=== PATIENT | male | born 1975 | race Caucasian/White ===

== ENCOUNTER → 2017-08-19 15:16 | Outpatient (CLI) | payer OTHER, SELFPAY ==
[2017-08-19 18:35] LABS: Vitamin D,25 Hydroxy 56.7 ng/mL (29.95-100.01)
[2017-08-19 18:39] LABS: ALB/GLOB Ratio 1.2 RATIO (0.9-2.4); AST(SGOT) 24 U/L (15-37); Alanine Aminotransfer ALT/SGPT 32 U/L (16-61); Albumin, Serum 4.2 g/dL (3.2-5.0); Alkaline Phosphatase 59 U/L (45-117); Anion Gap 9 (5-15); BUN 16 mg/dL (7-18); BUN/Creat Ratio 14.7 RATIO (10-20); Calcium,Total 6.9 mg/dL (8.5-10.1); Chloride 100 mmol/L (98-107); Creatinine, Serum 1.09 mg/dL (0.70-1.30); EST Glomerular Filtration Rate 78 mL/min (>60); Est Glom Filt Rate - Afr Amer 95 mL/min (>60); Globulin 3.4 g/dL (2.2-4.2); Glucose 78 mg/dL (74-106); Magnesium 2.3 mg/dL (1.6-2.6); PSA,Total - Annual Screen 1.19 ng/mL (0.00-4.00); Potassium 3.6 mmol/L (3.5-5.1); Protein, Total 7.6 g/dL (6.4-8.2); Sodium Level 138 mmol/L (136-145)
[2017-08-19 19:16] LABS: PTHIN 10.5 pg/mL (18.4-80.1)
== END ==
PROVIDERS: Family Provider Internal Medicine; PCP Internal Medicine; Visit Provider Internal Medicine
DX: Z86.39 Personal history of other endocrine, nutritional and metabolic disease (principal); Z80.42 Family history of malignant neoplasm of prostate
CPT/HCPCS: 36415; 80053; 82306; 83735; 83970; 84153; G0103

== ENCOUNTER → 2017-09-01 08:33 | Outpatient (CLI) | payer OTHER, SELFPAY ==
--- NOTE | 2017-09-01 09:19 | BD_ITS ---
STUDY: DUAL ENERGY X-RAY ABSORPTIOMETRY / DXA REASON FOR EXAM: Male, 41 years old. History of osteopenia. TECHNIQUE: Bone Mineral Density (BMD) measurements of lumbar spine and bilateral hips were obtained. COMPARISON: Comparison is made with prior study of August 08, 2014. FINDINGS: Lumbar Spine (L1-L4): g/cm2 (1.281) / T-score (0.5) / Z-score (0.6) Findings are suggestive of normal bone density with a low fracture risk. Left Femur Total: g/cm2 (1.011) / T-score (-0.6) / Z-score (-0.4) Left Femoral Neck: g/cm2 (0.887) / T-score (-1.4) / Z-score (-1.0) Right Femur Total: g/cm2 (0.998) / T-score (-0.7) / Z-score (-0.5) Right Femoral Neck: g/cm2 (1.000) / T-score (-0.5) / Z-score (0.1) The T-Scores on the most recent prior examination were: Lumbar Spine (L1-L4): There has been improvement of bone density since the previous examination. Left Femur Total: which represents no significant change. . Right Femur Total: which represents an improvement of 1.0%. BD/Dexa Bone Density Study IMPRESSION: The patient is considered osteopenic as outlined below according to World [employer] Organization (WHO) criteria with a moderate fracture risk. There has been improvement of bone density since the previous examination. Reference Information: The T-score is the number of standard deviations above or below the standard which is normal for young adults at their peak bone mineral density. The World Health Organization (WHO) interprets the T-scores as follows: Above -1 Normal bone density Between -1 and -2.5 Osteopenia Equal to / or below -2.5 Osteoporosis As a practical clinical guideline, osteopenia may be graded as follows: Mild -1 through -1.5 Moderate -1.6 through -2.0 Severe -2.1 through -2.4 The Z-score is the number of standard deviations above or below age-matched controls. A Z-score of less than -1.5 would be considered abnormal. References: 1. NIH Osteoporosis and Related Bone Diseases http://www.osteo.org 2. International Society for Clinical Densitometry http://www.iscd.org 3. National Osteoporosis Foundation http://www.nof.org Electronically Signed: Rasheed Washburn MD at 13:20 EDT Tel [phone], Service support ,
== END ==
PROVIDERS: Family Provider Internal Medicine; PCP Internal Medicine; Visit Provider Internal Medicine
DX: M85.80 Other specified disorders of bone density and structure, unspecified site (principal)
CPT/HCPCS: 77080

== ENCOUNTER → 2018-08-13 08:28 | Outpatient (CLI) | payer OTHER, SELFPAY ==
[2018-08-13 08:05] VITALS: BMI 25.0
[2018-08-13 12:50] LABS: Absolute Lymphocyte Count 1.58 X10^3/ul (0.83-4.51); Absolute Neutrophil Count 8.5 X10^3/uL (2.0-7.7); Basophil# 0.03 X10^3/uL; Basophil% 0.3 % (0-1); Eosinophil# 0.12 X10^3/uL; Eosinophils% 1.1 % (0-5); Hematocrit 44.7 % (40-54); Hemoglobin 14.9 g/dl (13.0-16.5); Lymphocyte # 1.58 X10^3/ul (4.0); Lymphocyte % 14.5 % (19-41); Mean Corp Hgb Conc 33.3 g/gl (32-36); Mean Corpuscular Hgb 30.4 pg (27.0-32.0); Mean Corpuscular Volume 91.2 fL (80-94); Mean Platelet Vol. 9.8 fl (6.2-12.0); Monocyte# 0.64 X10^3/uL; Monocyte% 5.9 % (0-10); Neutrophil # 8.52 X10^3/uL (2.7-7.7); Platelet Count 322 K/mm3 (150-450); RBC Distribution Width CV 13.3 % (11.6-14.6); White Blood Count 10.9 K/mm3 (4.4-11.0)
[2018-08-13 12:56] LABS: POSITIVE COUNT NO; POSITIVE DIFFERENTIAL NO; POSITIVE MORPHOLOGY NO
[2018-08-13 13:04] LABS: PTHIN 9.2 pg/mL (18.4-80.1)
[2018-08-13 13:05] LABS: ALB/GLOB Ratio 1.3 RATIO (0.9-2.4); AST(SGOT) 25 U/L (15-37); Alanine Aminotransfer ALT/SGPT 33 U/L (16-61); Albumin, Serum 4.4 g/dL (3.2-5.0); Alkaline Phosphatase 60 U/L (45-117); Anion Gap 7 (5-15); BUN 18 mg/dL (7-18); BUN/Creat Ratio 14.1 RATIO (10-20); Calcium,Total 7.8 mg/dL (8.5-10.1); Chloride 105 mmol/L (98-107); Cholesterol 214 mg/dL (200); Creatinine, Serum 1.28 mg/dL (0.70-1.30); EST Glomerular Filtration Rate 65 mL/min (>60); Est Glom Filt Rate - Afr Amer 78 mL/min (>60); Globulin 3.4 g/dL (2.2-4.2); Glucose 94 mg/dL (74-106); High Density Lipoprotein 46 mg/dL; Magnesium 2.3 mg/dL (1.6-2.6); Protein, Total 7.8 g/dL (6.4-8.2); Sodium Level 139 mmol/L (136-145); Triglycerides 116 mg/dL; Very Low Density Lipoprotein 23 mg/dL (5-40)
== END ==
PROVIDERS: Family Provider Internal Medicine; PCP Internal Medicine; Visit Provider Internal Medicine
DX: R03.0 Elevated blood-pressure reading, without diagnosis of hypertension (principal); E20.9 Hypoparathyroidism, unspecified; Z86.39 Personal history of other endocrine, nutritional and metabolic disease
CPT/HCPCS: 36415; 80053; 80061; 83735; 83970; 85025

== ENCOUNTER → 2019-02-17 11:03 | Outpatient (CLI) | payer OTHER, SELFPAY ==
[2019-02-09 16:55] VITALS: BMI 25.0
[2019-02-17 12:49] LABS: Anion Gap 5 (5-15); BUN 16 mg/dL (7-18); BUN/Creat Ratio 13.1 RATIO (10-20); Calcium,Total 7.5 mg/dL (8.5-10.1); Chloride 103 mmol/L (98-107); Creatinine, Serum 1.22 mg/dL (0.70-1.30); EST Glomerular Filtration Rate 68 mL/min (>60); Est Glom Filt Rate - Afr Amer 83 mL/min (>60); Glucose 78 mg/dL (74-106); PSA,Total - Annual Screen 1.03 ng/mL (0.00-4.00); Potassium 4.1 mmol/L (3.5-5.1); Sodium Level 137 mmol/L (136-145)
[2019-02-17 12:58] LABS: PTHIN 11.2 pg/mL (18.4-80.1)
[2019-02-17 13:00] LABS: Vitamin D,25 Hydroxy 72.4 ng/mL (29.95-100.01)
== END ==
PROVIDERS: Family Provider Internal Medicine; PCP Internal Medicine; Visit Provider Internal Medicine
DX: Z00.00 Encounter for general adult medical examination without abnormal findings (principal); E20.9 Hypoparathyroidism, unspecified; E83.51 Hypocalcemia
CPT/HCPCS: 36415; 80048; 82306; 83970; 84153; G0103

== ENCOUNTER 2019-05-10 05:52 | Day surgery (SDC) | payer OTHER, SELFPAY ==
[2019-02-09 16:55] VITALS: BMI 25.0
--- NOTE | 2019-05-09 20:42 | PCM.HP.BLA ---
History and Physical Date of Admission: 05/10/19 HISTORY OF PRESENT ILLNESS 43 year old man presents with Dupuytren's contracture right hand that has worsened over the last several months. He has palmar nodules at the distal palmar crease by the small finger and ring finger. He has noticed increasing flexion of his right small finger. He is right hand dominant. It is starting to affect his activities of daily living. He is able to straighten out his ring finger, long finger, and index finger. He denies any trauma. He denies any fever. He denies any drainage. He denies any numbness. He has also noticed the beginning of some early flexion of his left small finger. He has also noted a palmar nodule at the distal palmar crease by the ring finger. He presents at this time for further evaluation and treatment. PAST MEDICAL HISTORY Dupuytren's contracture Raynaud's disease hyperparathyroidism Kidney stone Low Calcium levels PAST SURGICAL HISTORY knee surgery removal of part of parathyroid ALLERGIES No Known Allergies MEDICATIONS calcium carbonate multivitamin cholecalciferol (vitamin D3) FAMILY HISTORY Mother - Raynaud disease, Breast cancer Grandmother - Raynaud disease Brother - Raynaud disease Father - Hypertension, prostate cancer SOCIAL HISTORY Smoking Status: Never smoker alcohol intake: current alcohol intake frequency: a few times a month Alcohol type: beer, wine substance use type: does not use REVIEW OF SYSTEMS General - Denies fever, fatigue, and weight loss. Eyes - Denies cataracts and glaucoma. ENT - Denies nasal congestion and sore throat. Endocrine - Denies excessive thirst and urination. Skin - Denies suspicious lesions and skin cancer. Musculoskeletal - Has joint pain, joint stiffness. Denies weakness of muscles and joints, back pain, and arthritis. Neuro - Denies headaches. Cardiovascular - Denies chest pain, fatigue, and shortness of breath with exertion. Psych - Denies anxiety and depression. Respiratory - Denies chronic cough and shortness of breath. Gastrointestinal - Denies nausea, vomiting, diarrhea, and constipation. Hematologic - Denies abnormal bruising and bleeding. Genitourinary - Denies hematuria and urinary frequency. PHYSICAL EXAMINATION General - Alert and Oriented. HEENT - PERRL. EOMI. Throat is clear. Neck - Supple and nontender. No cervical adenopathy. Lungs - Clear to auscultation. Heart - Regular rate and rhythm. Abdomen - Soft and nondistended. Extremities - FROM except for right small finger which cannot fully extend. No axillary adenopathy. Radial pulses are palpable. Fingers are warm with good capillary refill. No sensory deficits noted in both hands. Patient is right hand dominant. Palmar nodules are seen at the distal palmar crease right hand by the small finger and ring finger. There is skin adherence in this area. The PIP joint is flexed at 45 degrees. Some contracture is noted as it is difficult to straighten out the right small finger. The ring finger, long finger, and index fingers are straight. On the left hand is the early onset of some flexing of the small finger at the PIP joint of < 5 degrees. Passively can straighten out the left small finger. There is a palmar nodule at the distal palmar crease left hand by the ring finger. There is some early skin adherence present. No evidence of Garrod's nodules on the PIP joints. Neuro - CN II-XII grossly intact. Psych - Normal mood and affect. ASSESSMENT 1. Dupuytren's contracture right palm with nodules by the small finger and ring fingers with extension onto the small finger. 2. 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 3. Early Dupuytren's contracture left palm with a nodule by the ring finger with early onset onto the small finger and flexion at PIP joint (< 5 degrees). PLAN Patient has early onset Dupuytren's contracture left hand that can be observed at this time. He has Dupuytren's contracture right palm with nodules by the small finger and ring fingers with extension onto the small finger. 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 Recommend partial palmar dermal fasciectomy right hand at the small finger and the ring finger with extension to the small finger. Reconstruction will be with multiple Z-plasties, possible skin grafting. Depending on the fibrous contracture involving the digital nerves and or common digital nerves in the palm, neuroplasties may be necessary. With the degree of flexion contracture of the PIP joint right small finger (45 degrees), a capsulectomy may be necessary to allow some straightening of the finger. Surgery will be done under general anesthesia and tourniquet control. Depending on the complexity of the surgery, sometimes a surgical observation overnight stay in the hospital may be necessary. An extension splint will be applied at the end of the surgery. Tissue that is removed will be sent to Pathology for analysis to rule out carcinoma. Postoperatively, will set him up with OT for placement of a silastic splint and for range of motion exercises, strengthening, and edema management. Because of the closeness of the fibrotic process to the skin, it is important to be aggressive to remove the fibrotic tissue to minimize recurrence. Recurrent surgery is more risky for nerve injury that would necessitate repair and or nerve grafting. So there is some risk of skin loss and wound healing problems after surgery. Localized debridement in the office can be done with local wound care with daily Silver dressing changes. It is unusual to have to return to surgery for operative debridement and skin grafting unless an infection is present that needs operative intervention. Patient was informed of the risks and complications of the procedure including alternatives to surgery. These were discussed with the patient personally. Patient voices understanding and wishes to proceed. Some of the risks and complications were included in a form from the [employer].
--- NOTE | 2019-05-10 | DUP_PTH ---
PATIENT: HA HUERTAS [place] [facility] [place][id number] AGE/SX: 43/M ROOM: RE05/10/[address]: Dr. Chris Infante MD : 1975 BED: DIS: 05/10/2019 SPEC #: [id number] RECD: 05/10/19 13:17 STATUS: ALEC REGerda #: [id number] RIZWAN: 05/10/19 00:[address]: Chris Infante DEPT: SURGICAL PATHOLOGY RECD BY: Kale Adames ENTERED: 05/10/19 13:17 SP TYPE: [facility] DR: Dr. 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 AM:keli 05/11/19 MICROSCOPIC DESCRIPTION Slides are reviewed. GROSS DESCRIPTION Received is one container labeled with the patient name and designated Dupuytren's right hand. The specimen consists of multiple irregular fragments of indurated pink-viramontes soft tissue that in aggregate measure 5 x 5 x 2 cm. Yarn Worker portions are submitted in one cassette. /AM:keli 05/10/19 TC: 5 CPT:80739
[2019-05-10 06:36] VITALS: BP 134/90; PULSE 73; RESP 16; TEMP 36.6; O2SAT 99; BMI 24.9
[2019-05-10] MEDS: Lactated Ringers 1,000 ML 100 ML IV (06:44)
[2019-05-10] MEDS: Cefazolin 2 GM in 0.9% Normal Saline 100 ML IV (07:28)
[2019-05-10] MEDS: Mupirocin Ointment 22gm Tube 1 APPLIC (10:10)
--- NOTE | 2019-05-10 10:29 | OP.PCM_ITS ---
Report of Operation Date of Procedure: 05/10/19 Pre-Operative Diagnosis: 1. Dupuytren's contracture right palm with painful nodules by the small finger, ring finger, and long fingers with extension onto the small finger. 2. 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 Post-Operative Diagnosis: 1. Dupuytren's contracture right palm with painful nodules by the small finger, ring finger, and long fingers with extension onto the small finger. 2. 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 3. Radial digital nerve compression injury right small finger. Surgery/Procedure Performed:: 1. Excision Dupuytren's contracture with fa sciectomy right palm with painful nodules by the small finger, ring finger, and long fingers with release of small finger including PIP joint contracture. 2. Neuroplasty radial digital nerve right small finger. 3. Neuroplasty common digital nerve right palm to radial aspect right small finger and ulnar aspect right ring finger. 4. Epineural repair radial digital nerve compression injury right small finger. Description of Surgical Findings:: 43 year old man presents with Dupuytren's contracture right hand that has worsened over the last several months. He has palmar nodules at the distal palmar crease by the small finger and ring finger and long finger. He has noticed increasing flexion of his right small finger. He is right hand dominant. It is starting to affect his activities of daily living. He is able to straighten out his ring finger, long finger, and index finger. He denies any trauma. He denies any fever. He denies any drainage. He denies any numbness. He has also noticed the beginning of some early flexion of his left small finger. He has also noted a palmar nodule at the distal palmar crease by the ring finger. Patient was informed of the risks and complications of the procedure including alternatives to surgery. These were discussed with the patient personally. Patient voices understanding and wishes to proceed. Some of the risks and complications were included in a form from the [employer]. Some of the risks and complications that were discussed included but were not inclusive of failure to diagnose including symptom relief, pain, infection, numbness, stiffness, loss of digit, RSD (CRPS), need for further surgery, contracture, and wound healing problems. Total tourniquet time - 113 minutes. fitter armament: None Type of Anesthesia:: General Specimen's removed: Dupuytren's fibromatosis tissue right palm and small finger to Pathology. Drains: None. Estimated Blood Loss (mL): 5 ml. Description of Procedure: Patient was taken to OR in supine position and placed under general anesthesia. His right upper extremity was prepped and draped in the usual fashion. SCDs were placed for DVT prophylaxis. Perioperative antibiotics were given intravenously. The right hand was wrapped with an Esmarch bandage and the tourniquet was elevated to 250 mmHg. Under loupe magnification I made markings in the distal palmar crease involving the right small finger and right ring finger and right long finger. Made zig zag markings through the right small finger extending past the PIP joint. These markings in the palm were infiltrated with 1% Xylocaine and epinephrine for postoperative pain relief. After waiting 5 minutes for the anesthetic to take effect, I made incisions through the skin in the distal palmar crease. This incision extended through the subcutaneous tissue. There was a lot of dense fibrous tissue involving the subcutaneous tissue and adherent to the overlying skin. The fibrotic tissue extended down to the tendon sheath. There was evidence of pretendinous cord extending distally in the small finger. There was the beginning formation of a spiral cord on the radial aspect of the small finger. This cord involves the spiral band, Darian's ligament, and the lateral digital sheet. The radial digital nerve was starting to migrate anteriorly. I then slowly and carefully dissected the fibrous tissue off the neurovascular bundle in the palm involving the common digital nerve going to the radial aspect small finger and ulnar aspect ring finger. The radial digital nerve right small finger was dissected free distal to the PIP joint and preserved. I proceeded with neuroplasty of the common digital nerve right palm involving the radial aspect small finger and ulnar aspect ring finger and neuroplasty radial digital nerve right small finger. Due to the denseness of the fibrous tissue that I excised in the small finger over the radial digital nerve, it was noted there was a compression defect injury to the radial digital nerve. The defect was about 4 mm. After the neuroplasty, I was able to bring the digital nerve ends together for repair. Using microscopic instruments, I proceeded with an epineural repair of the radial digital nerve injury. I used 8-0 Nylon for the repair and used 6 sutures. The ulnar digital nerve right small finger was soft and not involved in the fibrotic process. After I excised the dense fibrotic tissue in the right small finger, I was able to extend and straighten the finger without difficulty The PIP joint contracture was mainly due to the fibrous contracture of the Dupuytren's without evidence of capsular scar tissue. Therefore, no capsulectomy was needed today. I then proceeded with removing additional fibrous tissue in the palm involving the flexor tendon to the ring finger and long finger. The common digital nerve to the radial aspect ring finger and ulnar aspect long finger and to the radial aspect long finger were soft and intact. After removing the fibrous tissue on the flexor tendons and the neurovascular bundles in the right palm and involving the small finger, these structures were soft with no evidence of recurrent contracture formation. After the excision of the fibrous tissue in the palm, I went ahead and made incisions into the A1 pulleys of the small finger, ring finger, and long finger to minimize triggering in these fingers in the future. The tourniquet was released after 113 minutes and good bleeding was noted at the wound edges. No evidence of vascular compromise is noted on the skin flaps even though some of the fibrous tissue excision extended up to the dermis. However at this time no evidence of vascular compromise is seen in the skin flaps. Hemostasis was obtained using gentle pressure and light electrocautery. I then closed the zig zag incisions in the small finger and the horizontal and longitudinal incisions in the palm in a layered fashion with 5-0 Monocryl interrupted sutures for the deep dermis and subcutaneous tissue. The skin was approximated with 5-0 Nylon simple interrupted sutures. Bactroban ointment was applied to the skin incisions followed by Xeroform gauze, 4x4 gauze followed by Kerlix gauze wrap and a volar splint keeping the fingers in extension and MP joints in slight flexion and the wrist in neutral. This was followed by a compression virginie wrap. At the end of procedure, I was able to extend and straighten the right small finger without difficulty. The other fingers were able to extend and straighten preoperatively. Tissue that was excised today was sent to Pathology for analysis to rule out carcinoma. Patient tolerated the procedure well and was sent to PACU in satisfactory condition. Patient will be sent home on antibiotics and pain medication. Patient will followup in a week for a wound check and for discussion of the pathology report. The sutures will be removed in two weeks. As an outpatient, I will set her up to see occupational therapy for a Silastic splint and for range of motion exercises and strengthening and edema management. Grafts/Implants Used: None. - Complications None. - Admit VTE Documentation VTE Present on Admission: No VTE Mechan Device Prophylaxis: SCD's VTE Pharm Prophylaxis ordered?: No Code Visit Surgery Charges CPT - 99654 ICD-10 - M72.0, M24.541 14799 M72.0, M24.541 61239 M72.0, M24.541 21153 S64.496A, M72.0, M24.541
[2019-05-10 10:30] VITALS: BP 133/94; BP 134/90; PULSE 76; RESP 14; TEMP 36.7; O2SAT 94
[2019-05-10 10:45] VITALS: BP 121/90; BP 134/90; PULSE 62; RESP 16; O2SAT 98
--- NOTE | 2019-05-10 10:46 | DCINST_ITS ---
You will use the following diet at home:: No restrictions May shower in (days): 1 - wear plastic bag ove right hand when showering May resume sexual activity in: No Restrictions Weight Bearing Status: Weight bearing as tolerated Lifting Restrictions: no lifting with right hand. Keep extremity elevated above heart level: Right Arm Call your doctor if your incision/area has: Continuous Slow Oozing, Sudden Incre ased Bleeding, Increased Pain/ Swelling, Increased Redness, Foul Smelling Discharge, Swelling at the incision site Call your doctor if you observe: Fever of 101 or Higher, Coldness, Increased Pain, Shortness of breath, Chest pain, Calf discomfort, Uncontrolled pain Change Dressing in (Days):: 7 - will change dressing in office. Cleanse incision/area with: - - wear plastic bag over right hand when showering. Allergies/Adverse Reactions: Allergies No Known Allergies Allergy (Unverified 05/03/19 10:46) Medications to take at Discharge calcium carbonate 600 mg calcium (1,500 mg) tablet 600 mg PO BID-TID tab 08/12/17 multivitamin capsule 1 cap PO QAM 08/12/17 cholecalciferol (vitamin D3) 50 mcg (2,000 unit) capsule 2,000 unit PO QDAY #90 cap 08/20/17 Cefadroxil [Duricef] 500 mg PO BID #10 cap 05/10/19 Diazepam [Valium] 5 mg PO 4X/DAY PRN PRN #20 tablet 05/10/19 Docusate Sodium [Colace] 100 mg PO BID #60 cap 05/10/19 Oxycodone HCl/Acetaminophen [Percocet 5/325] 1 tablet PO Q4H PRN PRN 7 Days #40 tablet 05/10/19 multivitamin capsule 1 cap PO QAM 05/10/19 proMETHazine tablet [Phenergan tablet] 25 mg PO 4X/DAY PRN PRN #30 tab 05/10/19 The following prescriptions were given: Docusate Sodium [Colace] 100 mg PO BID #60 cap Transmission Status: Pending to [id number] Cefadroxil [Duricef] 500 mg PO BID #10 cap Transmission Status: Pending to [id number] Oxycodone HCl/Acetaminophen [Percocet 5/325] 1 tablet PO Q4H PRN PRN 7 Days #40 tablet PRN Reason: Pain Transmission Status: Received by [id number] proMETHazine tablet [Phenergan tablet] 25 mg PO 4X/DAY PRN PRN #30 tab PRN Reason: Nausea Transmission Status: Pending to [id number] Diazepam [Valium] 5 mg PO 4X/DAY PRN PRN #20 tablet PRN Reason: Spasms Transmission Status: Received by [id number] Primary Care Physician: Melvi Batres MD [Primary Care Provider] - Test Results: Test results from this visit will be discussed in further detail at your follow- up appointment, if applicable. Please Follow Up With: Chris Infante MD When: one week. call [phone] for appt. Proposed Discharge Date: 05/10/19
[2019-05-10 11:00] VITALS: BP 121/92; BP 134/90; PULSE 62; RESP 16; O2SAT 99
[2019-05-10 11:15] VITALS: BP 126/86; BP 134/90; PULSE 63; RESP 16; TEMP 37; O2SAT 100
[2019-05-10 12:07] VITALS: BP 134/90; BP 144/98; PULSE 76; RESP 16; TEMP 36.4; O2SAT 100
== END 2019-05-10 12:10 | disposition home or self-care (01) ==
LOC: SDC 05:54 → AC 05:55
PROVIDERS: Family Provider Internal Medicine; PCP Internal Medicine; Referring Provider Surgery; Visit Provider Surgery
PROC: (CPT 26045; principal; 2019-05-10 07:15)
DX: M72.0 Palmar fascial fibromatosis [Dupuytren] (principal); S64.496A Injury of digital nerve of right little finger, initial encounter; E20.9 Hypoparathyroidism, unspecified; Z87.442 Personal history of urinary calculi; Z79.899 Other long term (current) drug therapy
CPT/HCPCS: 26123; 64702; 64704; 64831; 88305; J7120; J2405

== ENCOUNTER 2019-06-27 16:00 | Outpatient (RCR) | payer OTHER, SELFPAY ==
[2019-05-18 10:14] VITALS: BMI 24.9
--- NOTE | 2019-05-24 11:06 | HP.OTEVAL_ITS ---
Patient's Visit Information HA HUERTAS is a 43 year old M, referred to Occupational Therapy by Chris Infante MD, with a diagnosis of Duputren's fasciectomy. Date of Evaluation: 05/24/19 Occupational Therapist: OBI Moralez/Eloisa, CHT - Subjective Subjective: This 43 year old male was seen for OT eval with dx Dupuytren 2 weeks s/p dyuputren release- pt arrives in need of custom orthosis and ed. on ROM ex. Pt arrives with sx dressing on states daily tasks are more difficult due to limited use of right hand. pt reports numbness in LF and slight pain in hand. - Pain right hand 2 Pain Intensity Range: 1, 6 - ROM Wrist: right 60/60 left 60/75 MP: right IF 60, MF 50. RF 45 LF 30 PIP: right IF 70 MF 60 RF 55 LF 30 DIP: right IF 25 mf 25 rf 25 LF 0 ROM Comments: pt demo with limited digit ROM of right D2,3,4.5. right demo with limited functioal ROM and composite fist - Strength Acquisition Lead: right NT left 95# Lateral Pinch: right 12# left 16# Tripod Pinch: right 4# left 12# - Edema PIP: right LF 6.5 left 5.2 Proximal Phalanx: right 21cm left 20cm - Sensation Thumb: right 2.83 left 2.83 Index: right 2.83 left 2.83 Middle: right 2.83 left 2.83 Ring: right 2.83 left 2.83 Little: right 3.61 left 2.83 - Goals Goal:100% adherence to protocol: Yes Comment: Dupuytren release Goal:Daily scar massage when approriate: Yes Goal:ROM equal to unaffected hand: Yes Goal:Acquisition Lead/Pinch strength at least 75% of unaffected hand: Yes Goal:No pain with affected hand use: Yes Goal:PIP Circumferences equal to unaffected hand: Yes Goal:Full use of affected hand in daily activities including: Yes Goal:Decrease scar hypersensitivity: Yes - Rehabilitation General Assessment: pt 2 weeks s/p excision Dupuytren's contracture with fasciectomy right palm with painful nodules by the small finger, ring finger, and long fingers with release of small finger including PIP joint contracture and neuroplasty radial digital nerve right small finger and neuroplasty common digital nerve right palm to radial aspect right small finger and ulnar aspect right ring finger and epineural repair radial digital nerve compression injury right small finger.pt currently limited with ROM and has healing incision.Pt is currently limted with functional use of right UE for ADLs and IADLs. pt would benefit from skilled OT services 1-2x week for 6 weeks to return pt to PLOF. Today therapist kenyon. custom paddle orthosis, ed. on use and care- pt demo understanding- therapist ed. pt on ROM ex and scar mtg, edema control. pt demo understanding and agree to POC. - Anticipated Interventions Anticipated Interventions: A/AAROM/PROM, Strengthening, Edema Control, Scar Care, Triggerpoint Release, Desensitization, Sensory Retraining, Wound Care, Modalities, Orthoses, Joint Protection/Energy Conservation - Visit Plan Frequency: 1-2x /Week Duration: 6 Weeks TEXT: Thank you for the opportunity to evaluate your patient. For Medicare and Medicare HMO plans, please review the plan of care and approve it. It will need to be FAXED BACK to us at [phone] for Medicare purposes. Please let me know if there are questions or concerns regarding this plan of care. Physician Signature: Date:
--- NOTE | 2019-05-24 11:08 | HP.OTEVAL_ITS ---
Patient's Visit Information HA HUERTAS is a 43 year old M, referred to Occupational Therapy by Chris Infante MD, with a diagnosis of Duputren's fasciectomy. Date of Evaluation: 05/24/19 Occupational Therapist: OBI Moralez/Eloisa, CHT - Subjective Subjective: This 43 year old male was seen for OT eval with dx Dupuytren 2 weeks s/p dyuputren release- pt arrives in need of custom orthosis and ed. on ROM ex. Pt arrives with sx dressing on states daily tasks are more difficult due to limited use of right hand. pt reports numbness in LF and slight pain in hand. - Pain right hand 2 Pain Intensity Range: 1, 6 - ROM Wrist: right 60/60 left 60/75 MP: right IF 60, MF 50. RF 45 LF 30 PIP: right IF 70 MF 60 RF 55 LF 30 DIP: right IF 25 mf 25 rf 25 LF 0 ROM Comments: pt demo with limited digit ROM of right D2,3,4.5. right demo with limited functioal ROM and composite fist - Strength Application Support Administrator: right NT left 95# Lateral Pinch: right 12# left 16# Tripod Pinch: right 4# left 12# - Edema PIP: right LF 6.5 left 5.2 Proximal Phalanx: right 21cm left 20cm - Sensation Thumb: right 2.83 left 2.83 Index: right 2.83 left 2.83 Middle: right 2.83 left 2.83 Ring: right 2.83 left 2.83 Little: right 3.61 left 2.83 - Quick DASH-Disab of Arm,Shoulder& Hand Quick DASH Score: 48.3325 - Goals Goal:100% adherence to protocol: Yes Comment: Dupuytren release Goal:Daily scar massage when approriate: Yes Goal:ROM equal to unaffected hand: Yes Goal:Application Support Administrator/Pinch strength at least 75% of unaffected hand: Yes Goal:No pain with affected hand use: Yes Goal:PIP Circumferences equal to unaffected hand: Yes Goal:Full use of affected hand in daily activities including: Yes Goal:Decrease scar hypersensitivity: Yes - Rehabilitation General Assessment: pt 2 weeks s/p excision Dupuytren's contracture with fasciectomy right palm with painful nodules by the small finger, ring finger, and long fingers with release of small finger including PIP joint contracture and neuroplasty radial digital nerve right small finger and neuroplasty common digital nerve right palm to radial aspect right small finger and ulnar aspect right ring finger and epineural repair radial digital nerve compression injury right small finger.pt currently limited with ROM and has healing incision.Pt is currently limted with functional use of right UE for ADLs and IADLs. pt would benefit from skilled OT services 1-2x week for 6 weeks to return pt to PLOF. Today therapist kenyon. custom paddle orthosis, ed. on use and care- pt demo understanding- therapist ed. pt on ROM ex and scar mtg, edema control. pt demo understanding and agree to POC. - Anticipated Interventions Anticipated Interventions: A/AAROM/PROM, Strengthening, Edema Control, Scar Care, Triggerpoint Release, Desensitization, Sensory Retraining, Wound Care, Modalities, Orthoses, Joint Protection/Energy Conservation - Visit Plan Frequency: 1-2x /Week Duration: 6 Weeks TEXT: Thank you for the opportunity to evaluate your patient. For Medicare and Medicare HMO plans, please review the plan of care and approve it. It will need to be FAXED BACK to us at [phone] for Medicare purposes. Please let me know if there are questions or concerns regarding this plan of care. Physician Signature: Date:
--- NOTE | 2019-06-27 16:21 | HP.OTDCSUM ---
HP - OT D/C Summary It has been my pleasure to treat HA HUERTAS under orders from Chris Infante MD, for the diagnosis of Duputren's fasciectomy for a total of 10 visit(s). Please see the following information for a summary of their discharge status. - Overall Improvement % Improvement: 100 - Objective Objective/Function: pt demo with 40# right surgical scrub technician strength- pt demo the ability for form a composite fist. Reports Ind. with ADLs and IADLS. - Goals Patient Goals: Regain Mobility, Regain Strength, Decrease Pain, Use Hand/Wrist/Arm Normally Again Goal:100% adherence to protocol: Yes Goal:Daily scar massage when approriate: Yes Goal:ROM equal to unaffected hand: Yes Goal:Enamel Pulverizer/Pinch strength at least 75% of unaffected hand: Yes Goal:No pain with affected hand use: Yes Goal:PIP Circumferences equal to unaffected hand: Yes Goal:Full use of affected hand in daily activities including: Yes Goal:Decrease scar hypersensitivity: Yes - Plan Plan: D/C pt with HEP - D/C Information Discharge Comments: Pt was seen for 10 OT visits following a Duputren's fasciectomy. pt demo full functional ROM of right hand- using elastomer for scar at night with orthosis to prevent flex of digits while sleeping. Pt has met all goals in OT at this time and is D/C with HEP. If there are questions or concerns regarding this patient's occupational therapy, please fell free to call me at [phone]. Thank you for the referral of this patient. Sincerely, Catarina Grove, OTR/L, CHT
== END 2019-06-27 19:00 | disposition home or self-care (01) ==
LOC: OT 16:00
PROVIDERS: Family Provider Internal Medicine; PCP Internal Medicine; Referring Provider Surgery; Visit Provider Surgery
DX: M72.0 Palmar fascial fibromatosis [Dupuytren] (principal); S64.496D Injury of digital nerve of right little finger, subsequent encounter
CPT/HCPCS: 97035; 97110; 97140; 97166; 97168; 97530; 97760

== ENCOUNTER → 2019-08-04 16:31 | Outpatient (CLI) | payer OTHER, SELFPAY ==
[2019-08-04 15:58] VITALS: BMI 24.9
[2019-08-04 17:16] LABS: Anion Gap 4 (5-15); BUN 15 mg/dL (7-18); BUN/Creat Ratio 13.6 RATIO (10-20); Calcium,Total 7.4 mg/dL (8.5-10.1); Chloride 106 mmol/L (98-107); EST Glomerular Filtration Rate 77 mL/min (>60); Est Glom Filt Rate - Afr Amer 93 mL/min (>60); Glucose 86 mg/dL (74-106); Potassium 3.5 mmol/L (3.5-5.1); Sodium Level 139 mmol/L (136-145)
== END ==
PROVIDERS: PCP Internal Medicine; Referring Provider Internal Medicine; Visit Provider Internal Medicine
DX: I10 Essential (primary) hypertension (principal); E20.9 Hypoparathyroidism, unspecified
CPT/HCPCS: 36415; 80048

== ENCOUNTER → 2019-12-12 13:30 | Outpatient (CLI) | payer OTHER, SELFPAY ==
[2019-11-08 10:19] VITALS: BMI 24.9
[2019-12-12 15:16] LABS: Absolute Lymphocyte Count 1.75 X10^3/uL (0.83-4.51); Absolute Neutrophil Count 5.3 X10^3/uL (2.0-7.7); Basophil# 0.06 X10^3/uL; Basophil% 0.8 % (0-1); Eosinophil# 0.09 X10^3/uL; Eosinophils% 1.2 % (0-5); Hematocrit 40.9 % (40-54); Hemoglobin 13.8 g/dL (13.0-16.5); Lymphocyte # 1.75 X10^3/ul (4.0); Lymphocyte % 22.7 % (19-41); Mean Corp Hgb Conc 33.7 g/dL (32-36); Mean Corpuscular Hgb 30.5 pg (27.0-32.0); Mean Corpuscular Volume 90.3 fL (80-94); Mean Platelet Vol. 9.6 fl (6.2-12.0); Monocyte# 0.49 X10^3/uL; Monocyte% 6.3 % (0-10); NRBC Flagged by Analyzer 0 % (0-5); Neutrophil # 5.32 X10^3/uL (2.7-7.7); Neutrophil % 68.9 % (47-70); Platelet Count 349 K/mm3 (150-450); RBC Distribution Width CV 12.9 % (11.6-14.6); RBC Distribution Width SD 42.1 fl (35.1-43.9); Red Blood Count 4.53 M/mm3 (4.6-6.2); White Blood Count 7.7 K/mm3 (4.4-11.0)
[2019-12-12 15:33] LABS: ALB/GLOB Ratio 1.1 RATIO (0.9-2.4); AST(SGOT) 23 U/L (15-37); Alanine Aminotransfer ALT/SGPT 27 U/L (16-61); Alkaline Phosphatase 51 U/L (45-117); Anion Gap 6 (5-15); BUN 14 mg/dL (7-18); Calcium,Total 7.9 mg/dL (8.5-10.1); Chloride 104 mmol/L (98-107); Cholesterol 166 mg/dL (200); Creatinine, Serum 1.08 mg/dL (0.70-1.30); EST Glomerular Filtration Rate 78 mL/min (>60); Est Glom Filt Rate - Afr Amer 95 mL/min (>60); Globulin 3.5 g/dL (2.2-4.2); Glucose 116 mg/dL (74-106); High Density Lipoprotein 42 mg/dL; Potassium 3.4 mmol/L (3.5-5.1); Protein, Total 7.5 g/dL (6.4-8.2); Sodium Level 136 mmol/L (136-145); Triglycerides 131 mg/dL; Very Low Density Lipoprotein 26 mg/dL (5-40)
== END ==
PROVIDERS: PCP Internal Medicine; Referring Provider Internal Medicine Endocrinology, Diabetes & Metabolism; Visit Provider Internal Medicine Endocrinology, Diabetes & Metabolism
DX: E20.9 Hypoparathyroidism, unspecified (principal); I10 Essential (primary) hypertension
CPT/HCPCS: 36415; 80053; 80061; 85025

== ENCOUNTER → 2020-06-05 08:36 | Outpatient (CLI) | payer OTHER, SELFPAY ==
[2020-06-05 08:17] VITALS: BMI 23.1
[2020-06-05 12:34] LABS: ALB/GLOB Ratio 1.2 RATIO (0.9-2.4); AST(SGOT) 28 U/L (15-37); Alanine Aminotransfer ALT/SGPT 37 U/L (16-61); Albumin, Serum 4.3 g/dL (3.2-5.0); Alkaline Phosphatase 61 U/L (45-117); Anion Gap 5 (5-15); BUN 15 mg/dL (7-18); BUN/Creat Ratio 12.8 RATIO (10-20); Calcium,Total 8.7 mg/dL (8.5-10.1); Chloride 100 mmol/L (98-107); Creatinine, Serum 1.17 mg/dL (0.70-1.30); EST Glomerular Filtration Rate 71 mL/min (>60); Est Glom Filt Rate - Afr Amer 86 mL/min (>60); Globulin 3.5 g/dL (2.2-4.2); Glucose 87 mg/dL (74-106); Potassium 3.9 mmol/L (3.5-5.1); Protein, Total 7.8 g/dL (6.4-8.2); Sodium Level 138 mmol/L (136-145)
== END ==
PROVIDERS: PCP Internal Medicine; Referring Provider Internal Medicine; Visit Provider Internal Medicine
DX: I10 Essential (primary) hypertension (principal)
CPT/HCPCS: 36415; 80053

== ENCOUNTER 2021-08-12 08:29 | Outpatient (CLI) | payer OTHER, SELFPAY ==
[2021-08-12 12:00] LABS: Absolute Lymphocyte Count 1.43 X10^3/uL (0.83-4.51); Absolute Neutrophil Count 6.7 X10^3/uL (2.0-7.7); Basophil# 0.07 X10^3/uL; Basophil% 0.8 % (0-1); Eosinophil# 0.19 X10^3/uL; Eosinophils% 2.1 % (0-5); Hemoglobin 15.7 g/dL (13.0-16.5); Lymphocyte # 1.43 X10^3/ul (0.83-4.51); Lymphocyte % 15.9 % (19-41); Mean Corp Hgb Conc 33.4 g/dL (32-36); Mean Corpuscular Hgb 30.7 pg (27.0-32.0); Mean Corpuscular Volume 91.8 fL (80-94); Mean Platelet Vol. 9.9 fl (6.2-12.0); Monocyte# 0.55 X10^3/uL; Monocyte% 6.1 % (0-10); NRBC Flagged by Analyzer 0 % (0-5); Neutrophil # 6.71 X10^3/uL (2.7-7.7); Neutrophil % 74.7 % (47-70); Platelet Count 305 K/mm3 (150-450); RBC Distribution Width SD 44.1 fl (35.1-43.9); Red Blood Count 5.12 M/mm3 (4.6-6.2)
[2021-08-12 12:26] LABS: ALB/GLOB Ratio 1.1 RATIO (0.9-2.4); AST(SGOT) 26 U/L (15-37); Alanine Aminotransfer ALT/SGPT 36 U/L (16-61); Albumin, Serum 4.4 g/dL (3.2-5.0); Alkaline Phosphatase 65 U/L (45-117); Anion Gap 6 (5-15); BUN 17 mg/dL (7-18); BUN/Creat Ratio 13.9 RATIO (10-20); Calcium,Total 7.9 mg/dL (8.5-10.1); Chloride 99 mmol/L (98-107); Creatinine, Serum 1.22 mg/dL (0.70-1.30); EST Glomerular Filtration Rate 68 mL/min (>60); Est Glom Filt Rate - Afr Amer 82 mL/min (>60); Globulin 3.9 g/dL (2.2-4.2); Glucose 96 mg/dL (74-106); Potassium 3.5 mmol/L (3.5-5.1); Protein, Total 8.3 g/dL (6.4-8.2); Sodium Level 136 mmol/L (136-145); Thyroid Stim Hormone (TSH) 2.03 uIU/mL (0.358-3.74)
== END 2021-08-12 23:59 | disposition home or self-care (01) ==
PROVIDERS: PCP Internal Medicine; Referring Provider Internal Medicine Endocrinology, Diabetes & Metabolism; Visit Provider Internal Medicine Endocrinology, Diabetes & Metabolism
DX: I10 Essential (primary) hypertension (principal); E89.2 Postprocedural hypoparathyroidism
CPT/HCPCS: 36415; 80053; 84443; 85025

== ENCOUNTER → 2022-07-23 | Outpatient (CLI) | payer OTHER, SELFPAY ==
[2022-07-23 17:12] LABS: Absolute Lymphocyte Count 1.82 X10^3/uL (0.83-4.51); Absolute Neutrophil Count 5.6 X10^3/uL (2.0-7.7); Basophil# 0.06 X10^3/uL; Basophil% 0.7 % (0-1); Eosinophil# 0.21 X10^3/uL; Eosinophils% 2.5 % (0-5); Hematocrit 45.2 % (40-54); Hemoglobin 15.7 g/dL (13.0-16.5); Lymphocyte # 1.82 X10^3/ul (0.83-4.51); Mean Corp Hgb Conc 34.7 g/dL (32-36); Mean Corpuscular Hgb 30.5 pg (27.0-32.0); Mean Corpuscular Volume 87.8 fL (80-94); Mean Platelet Vol. 9.3 fl (6.2-12.0); Monocyte# 0.59 X10^3/uL; Monocyte% 7.1 % (0-10); NRBC Flagged by Analyzer 0 % (0-5); Neutrophil # 5.57 X10^3/uL (2.7-7.7); Neutrophil % 67.3 % (47-70); Platelet Count 367 K/mm3 (150-450); RBC Distribution Width CV 12.4 % (11.6-14.6); RBC Distribution Width SD 40.2 fl (35.1-43.9); Red Blood Count 5.15 M/mm3 (4.6-6.2); White Blood Count 8.3 K/mm3 (4.4-11.0)
[2022-07-23 17:42] LABS: ALB/GLOB Ratio 1.1 RATIO (0.9-2.4); AST(SGOT) 24 U/L (15-37); Alanine Aminotransfer ALT/SGPT 30 U/L (16-61); Albumin, Serum 4.2 g/dL (3.2-5.0); Alkaline Phosphatase 60 U/L (45-117); Anion Gap 9 (5-15); BUN 14 mg/dL (7-18); BUN/Creat Ratio 12.2 RATIO (10-20); Calcium,Total 9.1 mg/dL (8.5-10.1); Chloride 104 mmol/L (98-107); Cholesterol 227 mg/dL (200); Creatinine, Serum 1.15 mg/dL (0.70-1.30); EST Glomerular Filtration Rate 72 mL/min (>60); Est Glom Filt Rate - Afr Amer 87 mL/min (>60); Globulin 3.8 g/dL (2.2-4.2); Glucose 101 mg/dL (74-106); High Density Lipoprotein 46 mg/dL; Potassium 3.8 mmol/L (3.5-5.1); Sodium Level 141 mmol/L (136-145); Triglycerides 322 mg/dL; Very Low Density Lipoprotein 64 mg/dL (5-40)
== END | disposition home or self-care (01) ==
PROVIDERS: PCP Internal Medicine; Referring Provider Internal Medicine; Visit Provider Internal Medicine
DX: I10 Essential (primary) hypertension (principal)
CPT/HCPCS: 36415; 80053; 80061; 85025

== ENCOUNTER → 2022-08-21 | Outpatient (CLI) | payer OTHER, SELFPAY ==
[2022-08-21 15:29] LABS: Anion Gap 9 (5-15); BUN 15 mg/dL (7-18); Calcium,Total 9.2 mg/dL (8.5-10.1); Chloride 99 mmol/L (98-107); Creatinine, Serum 1.07 mg/dL (0.70-1.30); EST Glomerular Filtration Rate 78 mL/min (>60); Est Glom Filt Rate - Afr Amer 95 mL/min (>60); Glucose 97 mg/dL (74-106); Potassium 3.7 mmol/L (3.5-5.1); Sodium Level 139 mmol/L (136-145)
== END | disposition home or self-care (01) ==
PROVIDERS: PCP Internal Medicine; Referring Provider Internal Medicine; Visit Provider Internal Medicine
DX: I10 Essential (primary) hypertension (principal)
CPT/HCPCS: 36415; 80048

== ENCOUNTER → 2023-03-10 | Outpatient (CLI) | payer OTHER, SELFPAY ==
[2023-03-10 13:35] LABS: Anion Gap 7 (5-15); BUN 15 mg/dL (7-18); Calcium,Total 7.9 mg/dL (8.5-10.1); Chloride 102 mmol/L (98-107); Cholesterol 227 mg/dL (200); Creatinine, Serum 1.15 mg/dL (0.70-1.30); EST Glomerular Filtration Rate 72 mL/min (>60); Est Glom Filt Rate - Afr Amer 87 mL/min (>60); Glucose 105 mg/dL (74-106); High Density Lipoprotein 50 mg/dL; Potassium 3.7 mmol/L (3.5-5.1); Sodium Level 139 mmol/L (136-145); Triglycerides 92 mg/dL; Very Low Density Lipoprotein 18 mg/dL (5-40)
== END | disposition home or self-care (01) ==
PROVIDERS: PCP Internal Medicine; Visit Provider Internal Medicine
DX: I10 Essential (primary) hypertension (principal)
CPT/HCPCS: 36415; 80048; 80061

== ENCOUNTER → 2023-05-15 | Outpatient (CLI) | payer OTHER, SELFPAY ==
--- NOTE | 2023-05-15 14:45 | RAD_ITS ---
STUDY: X-RAY - CERVICAL SPINE REASON FOR EXAM: Male, 47 years old. Pain TECHNIQUE: 4 view(s) of the cervical spine were obtained. COMPARISON: None FINDINGS: There are degenerative changes of the anterior atlantoaxial articulation. There is straightening of the normal cervical lordosis. C5-C6 there is disc space narrowing spondylosis. There is no apparent acute loss of height or alignment. There is limited visualization of the odontoid on the odontoid view. Normal disc space heights. Normal visualized intervertebral neuroforamina. Sternotomy wires are seen midline. RAD/Cerv Spine 2 or 3 Views IMPRESSION: Limited study, no visualized fracture. Draining of the physiologic lordosis can be associated with muscle spasm or pain. Degenerative change C5-C6. Limited visualization of the odontoid. Electronically Signed: Naina Christianson MD at 22:23 EST Reading Location ID and State: [facility] / [place] Tel , Service support ,
== END | disposition home or self-care (01) ==
LOC: MTRAD 14:41
PROVIDERS: PCP Internal Medicine; Referring Provider Physician Assistant; Visit Provider Physician Assistant
DX: M54.2 Cervicalgia (principal)
CPT/HCPCS: 72040

== ENCOUNTER → 2023-06-29 | Outpatient (CLI) | payer OTHER, SELFPAY ==
--- NOTE | 2023-06-29 15:30 | MRI_ITS ---
EXAM: MR CERVICAL SPINE WITHOUT INTRAVENOUS CONTRAST CLINICAL INDICATION: Cervical radiculopathy TECHNIQUE: Multiplanar and multisequence MR images of the cervical spine without intravenous contrast were performed. COMPARISON: No relevant prior studies available. FINDINGS: VERTEBRAE: Normal. Normal alignment. Normal craniocervical junction and cervicothoracic junction. No spondylolisthesis. There is preservation of the normal cervical lordosis. Normal vertebral body height. No bone marrow edema. SPINAL CORD: Unremarkable in signal and morphology. SOFT TISSUES: Normal. No prevertebral soft tissue swelling. LYMPH NODES: Normal. There is no cervical adenopathy. DISCS/SPINAL CANAL/NEURAL FORAMINA: C2-C3: Normal. Normal disc height and morphology. Normal spinal canal. Normal neuroforamina. C3-C4: Normal. Normal disc height and morphology. Normal spinal canal. Normal neuroforamina. C4-C5: Mild disc space narrowing. Mild disc protrusion without impingement on the spinal canal. Intact neural foramina. C5-C6: Mild/moderate disc space narrowing. Left central disc osteophyte complex causes prominent narrowing of the left lateral recess and the adjacent neural foramen. Mild compression of the thecal sac. Mild narrowing of the right neural foramen related to uncinate joint hypertrophy. C6-C7: No disc space narrowing. Mild disc bulging without impingement on the spinal canal. Intact neural foramina. C7-T1: Normal. Normal disc height and morphology. Normal spinal canal. Normal neuroforamina. MRI/Spine Cervical (Routine) IMPRESSION: Prominent left central C5-6 disc osteophyte complex causing significant narrowing of the left lateral recess and adjacent neural foramen. Electronically Signed: Temo Gallardo MD at 9:38 EST ,
== END | disposition home or self-care (01) ==
LOC: MRI 14:59
PROVIDERS: PCP Internal Medicine; Referring Provider Internal Medicine; Visit Provider Internal Medicine
DX: M54.12 Radiculopathy, cervical region (principal); M54.2 Cervicalgia
CPT/HCPCS: 72141

== ENCOUNTER → 2023-09-11 | Outpatient (CLI) | payer OTHER, SELFPAY ==
[2023-09-11 12:22] LABS: Absolute Lymphocyte Count 1.61 X10^3/uL (0.83-4.51); Absolute Neutrophil Count 5.8 X10^3/uL (2.0-7.7); Basophil# 0.06 X10^3/uL; Basophil% 0.7 % (0-1); Eosinophil# 0.08 X10^3/uL; Hematocrit 43.3 % (40-54); Hemoglobin 14.6 g/dL (13.0-16.5); Lymphocyte # 1.61 X10^3/ul (0.83-4.51); Lymphocyte % 19.7 % (19-41); Mean Corp Hgb Conc 33.7 g/dL (32-36); Mean Corpuscular Hgb 30.5 pg (27.0-32.0); Mean Corpuscular Volume 90.4 fL (80-94); Mean Platelet Vol. 9.4 fl (6.2-12.0); Monocyte# 0.58 X10^3/uL; Monocyte% 7.1 % (0-10); NRBC Flagged by Analyzer 0 % (0-5); Neutrophil % 70.9 % (47-70); Platelet Count 392 K/mm3 (150-450); RBC Distribution Width CV 12.2 % (11.6-14.6); RBC Distribution Width SD 40.2 fl (35.1-43.9); Red Blood Count 4.79 M/mm3 (4.6-6.2); White Blood Count 8.2 K/mm3 (4.4-11.0)
[2023-09-11 12:51] LABS: ALB/GLOB Ratio 1.1 RATIO (0.9-2.4); AST(SGOT) 25 U/L (15-37); Alanine Aminotransfer ALT/SGPT 38 U/L (16-61); Alkaline Phosphatase 59 U/L (45-117); Anion Gap 4 (5-15); BUN 18 mg/dL (7-18); Calcium,Total 9.5 mg/dL (8.5-10.1); Chloride 103 mmol/L (98-107); EST Glomerular Filtration Rate 68 mL/min (>60); Est Glom Filt Rate - Afr Amer 83 mL/min (>60); Globulin 3.5 g/dL (2.2-4.2); Glucose 92 mg/dL (74-106); Potassium 3.9 mmol/L (3.5-5.1); Protein, Total 7.5 g/dL (6.4-8.2); Sodium Level 136 mmol/L (136-145)
[2023-09-11 13:03] LABS: Cholesterol 230 mg/dL (200); High Density Lipoprotein 45 mg/dL; PSA,Total - Annual Screen 1.34 ng/mL (0.00-4.00); Triglycerides 191 mg/dL; Very Low Density Lipoprotein 38 mg/dL (5-40)
== END | disposition home or self-care (01) ==
LOC: BIMLAB 08:51
PROVIDERS: Internal Medicine Endocrinology, Diabetes & Metabolism; PCP Internal Medicine; Referring Provider Internal Medicine; Visit Provider Internal Medicine
DX: E78.5 Hyperlipidemia, unspecified (principal); R35.1 Nocturia; E20.9 Hypoparathyroidism, unspecified; I10 Essential (primary) hypertension
CPT/HCPCS: 36415; 80053; 80061; 84153; 85025; G0103

== ENCOUNTER → 2024-02-11 | Outpatient (CLI) | payer OTHER, SELFPAY ==
--- NOTE | 2024-02-11 18:57 | CT_ITS ---
STUDY: CT CERVICAL SPINE WITHOUT CONTRAST REASON FOR EXAM: Male, 48 years old. PAIN RADIATION DOSAGE (If Supplied By Facility): CTDIvol = ( 21.38 ) mGy, DLP = ( 487.25 ) mGycm TECHNIQUE: High resolution transaxial imaging was performed without contrast material. Sagittal and coronal images were reconstructed. Individualized dose optimization techniques were used for this CT. COMPARISON: None FINDINGS: Normal craniovertebral junction. Normal anterior atlantoaxial articulation. Normal odontoid process. There is straightening of the normal cervical lordosis. Normal vertebral bodies and posterior osseous elements. C2-3: Normal endplates. Normal disc height and morphology. Normal central canal and intervertebral neuroforamina. C3-4: Normal endplates. Normal disc height and morphology. Normal central canal and intervertebral neuroforamina. C4-5: Normal endplates. Normal disc height and morphology. Normal central canal and intervertebral neuroforamina. C5-6: Moderate degree of disc space narrowing. Left posterior lateral spondylosis causing deformity of the thecal sac on the left side. No significant neural foraminal stenosis is seen. C6-7: Normal endplates. Normal disc height and morphology. Normal central canal and intervertebral neuroforamina. C7-T1: Normal endplates. Normal disc height and morphology. Normal central canal and intervertebral neuroforamina. Normal visualized soft tissue structures. CT/Spine Cervical without Contras IMPRESSION: Mild degree of disc space narrowing with the left posterior lateral spondylosis causing deformity cul-de-sac on the left side. No significant neural foraminal stenosis is seen. Loss of the normal cervical lordosis. Electronically Signed: Rasheed Washburn MD at 9:03 EDT ,
== END | disposition home or self-care (01) ==
LOC: CT 18:56
PROVIDERS: PCP Internal Medicine; Referring Provider Orthopaedic Surgery Orthopaedic Surgery of the Spine; Visit Provider Orthopaedic Surgery Orthopaedic Surgery of the Spine
DX: M50.80 Other cervical disc disorders, unspecified cervical region (principal)
CPT/HCPCS: 72125

== ENCOUNTER 2024-05-04 05:22 | Day surgery (SDC) | payer OTHER, SELFPAY ==
--- NOTE | 2024-04-20 07:30 | EKG12_ITS ---
Test Reason : PRE OP Blood Pressure : */* mmHG Vent. Rate : 97 BPM Atrial Rate : 97 BPM P-R Int : 144 ms QRS Dur : 86 ms QT Int : 346 ms P-R-T Axes : 72 79 45 degrees QTcB Int : 439 ms Normal sinus rhythm Normal ECG Confirmed by KAMRAN GOLDSTEIN, KALEB ([id number]), assignment desk editor LAURA ROBLERO ([id number]) on 04/21/2024 6:33:19 AM Referred By: Bentley Treviño Confirmed By: KALEB ANDREW MD
[2024-04-20 08:01] LABS: Absolute Lymphocyte Count 1.31 X10^3/uL (0.83-4.51); Absolute Neutrophil Count 7.1 X10^3/uL (2.0-7.7); Basophil# 0.07 X10^3/uL; Basophil% 0.7 % (0-1); Eosinophil# 0.17 X10^3/uL; Eosinophils% 1.8 % (0-5); Hematocrit 43.9 % (40-54); Hemoglobin 15.2 g/dL (13.0-16.5); Lymphocyte # 1.31 X10^3/ul (0.83-4.51); Mean Corp Hgb Conc 34.6 g/dL (32-36); Mean Corpuscular Hgb 30.6 pg (27.0-32.0); Mean Corpuscular Volume 88.3 fL (80-94); Mean Platelet Vol. 9.1 fl (6.2-12.0); Monocyte# 0.65 X10^3/uL; Monocyte% 6.9 % (0-10); NRBC Flagged by Analyzer 0 % (0-5); Neutrophil # 7.14 X10^3/uL (2.7-7.7); Neutrophil % 76.3 % (47-70); Platelet Count 355 K/mm3 (150-450); RBC Distribution Width CV 12.5 % (11.6-14.6); RBC Distribution Width SD 40.5 fl (35.1-43.9); Red Blood Count 4.97 M/mm3 (4.6-6.2); White Blood Count 9.4 K/mm3 (4.4-11.0)
[2024-04-20 08:43] LABS: Anion Gap 8 (5-15); BUN 17 mg/dL (7-18); BUN/Creat Ratio 14.2 RATIO (10-20); Calcium,Total 8.7 mg/dL (8.5-10.1); Chloride 102 mmol/L (98-107); EST Glomerular Filtration Rate 68 mL/min (>60); Est Glom Filt Rate - Afr Amer 82 mL/min (>60); Glucose 94 mg/dL (74-106); Potassium 3.4 mmol/L (3.5-5.1); Sodium Level 137 mmol/L (136-145)
[2024-04-20 09:27] LABS: HIV - WCH Non-Reactive (Nonreactive); Hepatitis B Surface Antibody Non-Reactive; Hepatitis C Antibody Non-Reactive (Nonreactive)
[2024-04-21 06:10] LABS: Hepatitis A AB, Total Negative (Negative)
[2024-05-04] VITALS (8 sets, daily range): BP systolic 117–137; BP diastolic 73–92; PULSE 89–100; RESP 12–18; TEMP 36.3–36.6; O2SAT 97–100
[2024-05-04] MEDS: Magnesium 1 GM over 15 mins IV (06:10)
[2024-05-04] MEDS: Acetaminophen 500 MG Tablet 1000 MG PO (06:25)
[2024-05-04] MEDS: Lactated Ringers 1,000 ML 15 ML IV ×2 (06:30→10:18)
--- NOTE | 2024-05-04 06:30 | RAD_ITS ---
EXAM: XR CERVICAL SPINE, 2 OR 3 VIEWS CLINICAL INDICATION: ANTERIOR FUSION C5-6 TECHNIQUE: Frontal and lateral views of the cervical spine. COMPARISON: No relevant prior studies available. FINDINGS: VERTEBRAE: Images obtained intraoperatively. Initial localization of the C6 vertebral body anteriorly. Hardware is placed from an anterior fusion of C5 and C6. Preserved vertebral body height. No acute fracture. No spondylolisthesis. Preservation of the normal cervical lordosis. No significant facet arthropathy. DISC SPACES: Unremarkable. Disc spaces are maintained. SOFT TISSUES: Unremarkable. No prevertebral soft tissue widening. LUNG APICES: Clear. RAD/Cerv Spine 2 or 3 Views IMPRESSION: Anterior fusion of C5-6. Electronically Signed: Kenyon Parisi MD at 23:57 EST ,
--- NOTE | 2024-05-04 07:16 | PCM.PRE.AN2 ---
ASA Classification* ASA Classification ASA Classification: 2 Assessment & Plan Anesthesia* Anesthesia Assessment Anesthesia Assessment: Discussed sedation and/or anesthesia options, risks, benefits, and alternatives with patient/parents/legal guardian/POA. Questions invited. The patient/parents/legal guardian/POA seems to understand and agrees to proceed with anesthesia plan. Reviewed the physical assessment, medical history, allergy history and patient home medications list prior to surgery/procedure/anesthetic and documented any changes. Performed airway and anesthesia risk assessments. Anesthesia Type Anesthesia Type: General Anesthesia Focused Assessment* Airway Assessment Mouth opens: >3 cm Mallampati Score: II Focused Labs Anesthesia Preop lab: CBC WBC 9.4 K/mm3 (4.4-11.0) 04/20/24 07:44 RBC 4.97 M/mm3 (4.6-6.2) 04/20/24 07:44 Hgb 15.2 g/dL (13.0-16.5) 04/20/24 07:44 Hct 43.9 % (40-54) 04/20/24 07:44 Plt Count 355 K/mm3 (150-450) 04/20/24 07:44 CHEMISTRY Potassium 3.4 mmol/L (3.5-5.1) L 04/20/24 07:44 Sodium 137 mmol/L (136-145) 04/20/24 07:44 Magnesium 2.0 mg/dL (1.6-2.6) 04/20/24 07:42 BUN 17 mg/dL (7-18) 04/20/24 07:44 Creatinine 1.20 mg/dL (0.70-1.30) 04/20/24 07:44 Glucose 94 mg/dL (74-106) 04/20/24 07:44 TSH 2.03 uIU/mL (0.358-3.74) 08/12/21 08:30 COAG Pre-Assessment Diagnosis/Proposed Procedure Planned Operative Procedure(s): ANTERIOR CERVICAL DISC FUSION C5-6 Anesthesia History Anesthesia History - canning machine operator: Anesthesia History - canning machine operator Hx Hospitalization No 04/13/24 11:15 Any Problems With Anesthesia Yes: N,V 04/13/24 11:15 Cholinesterase deficiency No 04/13/24 11:15 You/Your Family Experience No 04/13/24 11:15 fever (hyperthermia) with Relationship Recent Exposure to Contagious Disease Does patient have nerve No 04/13/24 11:15 stimulator Patient instructed to have device shut off --Does patient have Pacemaker or ICD? When Was Last Pacemaker Check QUESTION #4 FULL TEXT: You/Your Family Experience fever (hyperthermia) with Anesthesia Last Oral Intake Last Oral intake: Last Oral Intake NPO since Meds taken in AM with sips of water? Meds patient instructed to take am of surgery PONV PONV - canning machine operator: PONV - canning machine operator Female No 04/13/24 11:15 HX of Motion Sickness No 04/13/24 11:15 HX of N/V After Surgery Yes 04/13/24 11:15 Non-Smoker Yes 04/13/24 11:15 Duration of Surgery greater Yes 04/13/24 11:15 than 60 minutes Number of Risk Factors 3 04/13/24 11:15 PONV Score Moderate Risk 04/13/24 11:15 Height & Weight Height & Weight: Anesthesia: Height & Weight Height 6 ft 05/03/24 08:17 Weight: 83.461 kg 05/03/24 08:17 Respiratory Assessment Respiratory Assessment - canning machine operator: Respiratory Tract Infection Hx - canning machine operator Hx Respiratory Tract Infection No 04/13/24 11:15 STOP Sleep Apnea STOP Sleep Apnea - canning machine operator: STOP Sleep Apnea - canning machine operator Hx Hypertension Yes: CONTROLLED WITH MED 04/13/24 11:15 Hx Sleep Apnea No 04/13/24 11:15 CPAP BIPAP Do you snore loudly (louder No 04/13/24 11:15 than talking or can be heard Do you often feel tired/ No 04/13/24 11:15 fatigued/ sleepy during daytime? Has anyone observed you stop No 04/13/24 11:15 breathing during sleep? STOP Results Negative 04/13/24 11:15 QUESTION #5 FULL TEXT : Do you snore loudly (louder than talking or can be heard through closed doors)? 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 Specify any problems Hx of Preganancy in last 3 N/A 04/13/24 11:15 Months Nurse Filling Out Transfusion DSCHRIBER 04/13/24 11:15 & Questions: Date: 04/13/24 04/13/24 11:15 Time: 11:17 04/13/24 11:15 Patient unable to answer at this time (ie. confused, unrespo /Reproduction History /Reproductive History - canning machine operator: /Reproductive Hx- canning machine operator Hx Now No 04/13/24 11:15 Gestational Age (in weeks): EDC: Hx Hx Para Hx Section SAB No 04/13/24 11:15 Active Medications Active Medications: Current Medications Generic Name Dose Route Start Last Admin Trade Name Freq PRN Reason Stop Dose Admin Acetaminophen 1,000 mg 05/04/24 07:30 Acetaminophen 500 Mg Tablet PO 05/04/24 07:31 X1 ONE Dexamethasone Sodium Phosphate 8 mg 05/04/24 07:30 Dexamethasone 10 Mg/Ml Vial IV 05/04/24 07:31 X1 ONE Dexamethasone Sodium Phosphate 4 mg 05/04/24 07:30 Dexamethasone 4 Mg/Ml Vial IV 05/04/24 07:31 X1 ONE Tranexamic Acid 1,000 mg/ 110 mls @ 440 mls/hr 05/04/24 07:30 Sodium Chloride IV 05/04/24 07:44 X1 ONE Tranexamic Acid 1,000 mg/ 110 mls @ 440 mls/hr 05/04/24 07:30 Sodium Chloride IV 05/04/24 07:44 X1 ONE Cefazolin Sodium 2 gm/ N/A 20 mls @ 400 mls/hr 05/04/24 07:30 IV 05/04/24 07:32 PREOP ONE Magnesium Sulfate 1 gm/ 102 mls @ 408 mls/hr 05/04/24 07:30 Dextrose IV 05/04/24 07:44 X1 ONE Insulin Human Lispro 1 - 6 unit 05/04/24 07:30 Insulin Lispro 100 Unit/Ml Insuln.Pen SC 05/04/24 13:30 Q4H PRN PRN BG>/= 180, SEE PROTOCOL Protocol PFSH Medical History Alcohol use Restless legs Bone spur Chewing tobacco use Leg cramps Hypertension Nocturia Hyperlipidemia history of finger surgery Raynauds disease History of hyperparathyroidism Kidney stone Low calcium levels Seasonal allergies Home Medications ?Medication ?Instructions ?Recorded ?Last Taken ?Type calcium carbonate (Calcium 600) 600 mg PO BID-TID 08/12/17 05/09/19 History multivitamin 1 cap PO QAM 08/12/17 05/09/19 History cholecalciferol (vitamin D3) 50 2,000 unit PO QDAY #90 caps 08/20/17 05/09/19 Rx mcg (2,000 unit) capsule glucosamine 750 [id number] 1 tab PO DAILY 07/10/23 Unknown History no1 644 mg-C 30 mg-naila 1 mg tablet (Osteo Bi-Flex Triple Strength) calcitriol 0.25 mcg capsule 0.5 mcg (2 x 0.25 mcg) PO DAILY 08/10/23 Unknown Rx #180 caps hydrochlorothiazide 25 mg tablet 25 mg PO DAILY 04/13/24 Unknown History losartan 50 mg tablet 50 mg PO QHS 04/13/24 Unknown History Allergy/AdvReac Type Severity Reaction Status Date / Time No Known Allergies Allergy Verified 04/27/24 10:14 Family History Mother Raynaud disease Breast cancer Grandmother Raynaud disease Brother Raynaud disease Father Hypertension Cancer prostate Surgical History History of parathyroid surgery History of hand surgery History of knee surgery Social History Smoking Status: Former smoker alcohol intake: current alcohol intake frequency: a few times a month Alcohol type: beer and wine substance use type: does not use what type of physical activity do you participate in: running frequency: 3-4 times per week Review of Systems (Anesthesia) ROS Narrative System reviewed and no additional complaints, except as documented.
--- NOTE | 2024-05-04 07:37 | PCM.HP.BLA ---
History and Physical MR#: [id number] Acct: [id number] Name: DARNELL HUERTAS Rep #: [id number] : 1975 Provider: Dr. Bentley Treviño MD Age/Sex: 48/M Location[place] [facility] [email or web address] Status: Signed Intake Vital Signs 09/11/2407:27 Height 6 ft Intake Visit Reasons: cervical spine Chief Complaint: cervical spine Accompanied by: Is patient in pain?: No Allergies No Known Allergies Allergy (Verified 04/26/24 15:56) Medications ?Medication ?Instructions ?Recorded ?Confirmed ?Type calcium carbonate (Calcium 600) 600 mg PO BID-TID 08/12/17 04/26/24 History multivitamin 1 cap PO QAM 08/12/17 04/26/24 History cholecalciferol (vitamin D3) 50 2,000 unit PO QDAY #90 caps 08/20/17 04/26/24 Rx mcg (2,000 unit) capsule glucosamine 750 hi-[id number]-[id number] 1 tab PO DAILY 07/10/23 04/26/24 History no1 644 mg-C 30 mg-naila 1 mg tablet (Osteo Bi-Flex Triple Strength) calcitriol 0.25 mcg capsule 0.5 mcg (2 x 0.25 mcg) PO DAILY 08/10/23 04/26/24 Rx #180 caps hydrochlorothiazide 25 mg tablet 25 mg PO DAILY 04/13/24 04/26/24 History losartan 50 mg tablet 50 mg PO QHS 04/13/24 04/26/24 History PFSH Medical History Alcohol use Restless legs Bone spur Chewing tobacco use Leg cramps Hypertension Nocturia Hyperlipidemia history of finger surgery Raynauds disease History of hyperparathyroidism Kidney stone Low calcium levels Seasonal allergies Surgical History History of parathyroid surgery History of hand surgery History of knee surgery Family History Mother Raynaud disease Breast cancerGrandmother Raynaud diseaseBrother Raynaud diseaseFather Hypertension Cancer prostate Social History Smoking Status: Former smoker alcohol intake: current alcohol intake frequency: a few times a month Alcohol type: beer and wine substance use type: does not use what type of physical activity do you participate in: running frequency: 3-4 times per week HPI cervical spine Details: This documentation accurately reflects the service provided and the decisions made by me, Dr. Bentley Treviño MD 04/26/24 2430. Part of today?s visit was documented by Elizabeth HERNANDEZ , acting as scribe. DARNELL HUERTAS is a 48 year old M here today for a Pre-Op dos 05/04/2024. Patient is having Anterior Cervical Disc Fusion C5-6. Patient signed the consent and was giving his soap and drinks. Says that he has noticed left sided thumb numbness since he was seen last. Says that he had one fall several weeks ago. HPI from 01/22/24: DARNELL HUERTAS is a 48 year old M here today for cervical spine pain. Pt. advises he continues to experience neck pain as well as radiculopathy down his left arm to his elbow with some numbness and tingling. He was advised to come back to schedule surgery this fall to remove a bone spur on his neck. Says that since he was last seen in July his pain has remained the same with left sided pain and numbness, no right are symptoms. Pain down his arm goes to his elbow and stops. He has been chiropractic treatment without significant persistent help. He has been avoiding activities that seem to give him a bad flareup of radicular pain. This seems to affect his quality of life. 07/10/23: DARNELL HUERTAS is a 47 year old M here today for cervical spine pain. Patient states the cervical spine pain started last winter and it just started back up in April. Patient states he is currently not experiencing any pain but it is sensitive. Patient denies any specific injury to the cervical spine that he is aware of. He describes the pain as a stabbing pain down into his back and he feels that there is a string connected from his neck to his left elbow that feels like it is pulling which causes a stabbing pain. Patient states he did some transitional care nurse and it gave him some relief. He states they did have him do some stretches but that didn't relieve his pain at all. Patient states he did take some pain medication that he was prescribed from his PCP. Patient denies anything that increases his pain. Patient denies anything that decreases the pain as well. Patient states he does have numbness and tingling down into his left arm. He states that is what bothers him the most as it feels like his strength is gone when that happens. Patient denies any surgery to the back. He does note he had a surgery to remove his parathyroid glands in 2008 and 2010. Darnell has had neck pain radiating down to the left upper extremity at least for 1 year now after the slip and fall on ice last winter. It improved a little bit over spring, but around fall he had another severe flareup and was not able to do any of the heavy work that he does at work. 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 At this time his flareup has somewhat gotten better. He has been doing chiropractic treatment at least once a week since April. He has had oral steroids which have given him some temporary relief. He has not had any epidural injections. He is nondiabetic. Ortho Exam General General: Yes no acute distress Neurologic: Yes alert and Yes oriented x3 Spine SPINE TESTING CERVICAL THORACIC LUMBAR Musculoskeletal Strength 0=absent - 5=normal Details: Examination of the neck shows mild left paraspinal tenderness. Neurologic evaluation of upper extremity shows 5 x 5 power in all muscles normal sensations in all dermatomes. Jimi's negative. Romberg's is negative. There is no hyperreflexia lower extremities. Coding Level of Care Code Off vis,est,level 4 Diagnoses Cervical radiculopathy M54.12 Time Spent (min) 35 Assessment and Plan Assessment and Plan (1) Cervical radiculopathy: Status: Acute Plan Again reviewed his previous cervical spine x-rays as well as MRI done recently. He has C5-6 disc height loss, mild reversal of cervical lordosis, no dynamic instability. MRI shows mild centrally and severe left foraminal stenosis at C5-6. This seems to be a large paracentral disc bulge with bony osteophyte that seems to be causing paracentral cord indentation as well as nerve root compression. No cord signal changes seen. CT cervical spine done in January confirms the large osteophytes which are nonbridging and paracentral. Again explained imaging findings and treatment options. Patient has had a prolonged course of nonsurgical treatment without significant help. Due to the significantly large osteophyte, I recommend fusion as against disc replacement. Recommend C5-6 ACDF. Reviewed the benefits and risks of surgery. Risks of surgery include bleeding, infection, visceral injury, dysphagia, hardware failure, pseudoarthrosis, adjacent segment degeneration, pneumonia, DVT, pulmonary embolism, atelectasis, gait abnormality, persistent pain, stretch injuries, chance for future surgeries. Patient understands and agrees to proceed with surgery. Explained in detail the procedure of the disc replacement. Discussed post surgery restrictions such as no bending, lifting, or twisting and cervical collar wear schedule for the first 2 weeks. Answered all questions that he had today in preparation for surgery. Consent was signed. Patient is in agreement.
[2024-05-04] MEDS: Cefazolin 2 GM in Syringe IV (07:53)
[2024-05-04] MEDS: TRANEXAMIC ACID 1,000 MG in 0.9% Normal Saline (100mL Bag) 100 ML 440 MG IV ×2 (08:00→09:20)
[2024-05-04] MEDS: dexAMETHasone 10 MG/ML Vial 8 MG IV (08:06)
--- NOTE | 2024-05-04 10:01 | PCM.POST.ANE ---
Anesthesia: Postop Eval I Current Vital Signs Temperature: 97.3 F Pulse Rate: 100 Blood Pressure: 133/82 Respiratory Rate: 16 Pulse Ox: 98 Oxygen Delivery Method: Room Air Assessment Airway patent: Yes Spontaneous unlabored respirations: Yes Mental status: Awake and Calm nausea: No Vomiting: No Anesthesia Complication: No Fluid Hydration Crystalloid volume administer (ml): 1,300 Total IV fluid infused: 1,300 Progress Note Anesthesia document: Postop Eval 1 completed: Yes
--- NOTE | 2024-05-04 11:17 | POSTOPAN2_ITS ---
Anesthesia Postop Eval I Sum Postop Eval Completion status Anesthesia document: Postop Eval 1 completed: Yes Anesthesia Postop Eval I Summary Anesthesia Postop Eval I Summary: Anesthesia Postop Eval I: Assessment Summary Airway patent Yes 05/04/24 10:01 LOSS CLAIM [email or web address] Spontaneous unlabored Yes 05/04/24 10:01 LOSS CLAIM CLERK.GDOTT respirations Mental status Awake,Calm 05/04/24 10:01 LOSS CLAIM CLERK.GDOTT nausea No 05/04/24 10:01 LOSS CLAIM CLERK.GDOTT Vomiting No 05/04/24 10:01 LOSS CLAIM CLERK.GDOTT Anesthesia Postop Eval I: Fluid Summary Crystalloid volume administer 1,300 05/04/24 10:01 LOSS CLAIM CLERK.GDOTT (ml) Colloids volume administered ( ml) Blood Product volume administered (ml) Total IV fluid infused 1,300 05/04/24 10:01 LOSS CLAIM CLERK.GDOTT Anesthesia Postop Eval I: Summary Notes Anesthesia Complication No 05/04/24 10:01 LOSS CLAIM CLERK.GDOTT Anesthesia Complication Comment: Post-operative progress note Anesthesia: Postop Eval II Evaluation Mental status: Awake Pain Level: 2 nausea: No Vomiting: No
--- NOTE | 2024-05-04 11:17 | PCM.POSTANE2 ---
Anesthesia Postop Eval I Sum Postop Eval Completion status Anesthesia document: Postop Eval 1 completed: Yes Anesthesia Postop Eval I Summary Anesthesia Postop Eval I Summary: Anesthesia Postop Eval I: Assessment Summary Airway patent Yes 05/04/24 10:01 WEIGHT [email or web address].[email or web address] Spontaneous unlabored Yes 05/04/24 10:01 WEIGHT RECORDER.GDOTT respirations Mental status Awake,Calm 05/04/24 10:01 WEIGHT RECORDER.GDOTT nausea No 05/04/24 10:01 WEIGHT RECORDER.GDOTT Vomiting No 05/04/24 10:01 WEIGHT RECORDER.GDOTT Anesthesia Postop Eval I: Fluid Summary Crystalloid volume administer 1,300 05/04/24 10:01 WEIGHT RECORDER.GDOTT (ml) Colloids volume administered ( ml) Blood Product volume administered (ml) Total IV fluid infused 1,300 05/04/24 10:01 WEIGHT RECORDER.GDOTT Anesthesia Postop Eval I: Summary Notes Anesthesia Complication No 05/04/24 10:01 WEIGHT RECORDER.GDOTT Anesthesia Complication Comment: Post-operative progress note Anesthesia: Postop Eval II Evaluation Mental status: Awake Pain Level: 2 nausea: No Vomiting: No
--- NOTE | 2024-05-04 12:50 | OP.PCM_ITS ---
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 Post-Operative Diagnosis: Same Select all DRAINS/GRAFTS/IMPLANTS that apply: Graft Graft details: Allograft cortical cancellous strut structural graft and Implanted device Implanted device details: Medtronic Redkey Elite plate instrumentation Type of Anesthesia: General Estimated Blood Loss: 10 cc Specimen collected: No Description of surgery: Preoperative diagnosis: C5-6 disc degeneration with stenosis, radiculomyelopathy Postoperative diagnosis: Same Name of procedure: C5-6 anterior cervical discectomy and fusion with plate instrumentation - Anterior cervical fusion C5-6, CPT code 12661 - Anterior plate instrumentation C5-6, CPT code 21629/59 -C5-6 structural allograft bone with DBX, CPT code 76130 Attending surgeon: Bentley Treviño M.D. Anesthesia: Gen. endotracheal Estimated blood loss: 10 mL Complications: None Instrumentation used: Medtronic Redkey Elite plate, LASR corticocancellous block Indications: The patient is a pleasant 48-year-old gentleman who presented with neck pain, left upper extremity radiation and weakness, difficulty with dexterity and balance. MRI showed C5-6 disc degeneration with stenosis with left hemicord compression and left foraminal stenosis. In order to halt the progression of myelopathy, the patient requested surgical treatment. All risks and benefits of the procedure were explained to the patient. The risks include but are not limited to infection, bleeding, injury to nerves and vessels, vertebral artery injury, spinal cord injury, paralysis, vocal cord paralysis, injury to esophagus, pseudoarthrosis, need for further procedures, adjacent segment degeneration. Procedure: The patient was identified in the preoperative suite using unique patient identifiers. Skin was marked consent was taken and all questions were answered. The patient was then brought back to the operative room and a timeout was performed. General endotracheal anesthesia was given. Intraoperative neuro monitoring leads were applied. The patient was carefully positioned supine on a regular OR table. A lateral view with a C-arm was done to identify the level and to define the incision. The anterior neck was then prepped and draped in the usual fashion. A final timeout was then performed. A transverse skin incision was taken to the left of midline. Subcutaneous tissue was then divided with Bovie. Platysma was identified and cut along the incision with scissors. The fascial interval between the sternocleidomastoid and the larynx was developed. Omohyoid was identified and retracted. The esophagus with the larynx was retracted medially to reach the prevertebral fascia. Marker x-ray was performed with bent spinal needle and disc space and levels were confirmed. Longus coli muscle was elevated on both sides at and above and below C5-6 disc. Self-retaining retractors were then placed. A long handle knife was then used to perform annulotomy at C5-6. Disc fragments were removed with the pituitary. [place] pins were placed in C5 and C6 for disc distraction. Curettes and bur was utilized to remove cartilage from the endplates. Discectomy was performed laterally up to the uncovertebral joints. Posterior osteophytes were thinned down with the bur and adequate decompression in the central and foraminal areas were performed and PLL was thinned out. There was a large osteophyte on the left C5 endplate which was taken down and removed with Kerrison rongeur. Once the disc space was prepared, trials of various sizes were utilized. Thorough irrigation was given. 6 mm LASR cortical cancellous allograft bone large footprint was then fashioned in such a way that concavities were burred out inferiorly and superiorly and half cc of DBX (demineralized bone matrix) was squeezed into the cancellous portion. The graft was then inserted into the C5-6 disc space. The graft was found to be in good apposition with good pullout strength. A 23 mm Medtronic Redkey Elite plate was then fixed to C5-6 with 16 mm screws. A lateral x-ray was then taken to check the length of the screws. Both AP and lateral x-rays showed good positioning of plate and screws. The locking mechanism over the screw heads was then turned. Thorough irrigation was again given. Hemostasis was achieved. Closure was done with 3-0 Vicryl for the platysma and subcutaneous tissue layers and 4-0 Monocryl for the skin. Closure was done around the drain. Steri-Strips were applied and dressing was done with 4 x 4 gauze and Tegaderm. A cervical collar was then applied. The patient was then woken up from anesthesia extubated and taken to PACU in stable condition. From here, the patient will be transitioned to the floor. Intraoperative neuro monitoring was performed throughout this procedure. Motor evoked potentials were run periodically. All potentials remained at baseline throughout the procedure. I was present for the entire surgery and performed the surgery myself. Drafting Teacher Aruna Torres PA-C. My physician automotive service assistant was a vital part of this case. They were important in appropriate retraction during the case, and protection of soft tissues during the procedure. Their intimate knowledge of the case and my steps aided in safe and expedient completion of the procedure as well as appropriate position of the patient during the surgery. They were also vital in assisting with closure under my direct supervision. Surgical Findings: See operative note Tugboat Engineer smash fixer: Yes Mental Health Counselor: Aruna Torres Tasks completed by hardware sales assistant: Closing, Removing tissue, Hemostasis: Electrocautery and Retracting Complications Complications: No Procedures Musculoskeletal [id number]: Other Procedure See Report
== END 2024-05-04 12:35 | disposition home or self-care (01) ==
LOC: SDC 07:09 → AC 07:09
PROVIDERS: Anesthesiology; PCP Internal Medicine; Referring Provider Orthopaedic Surgery Orthopaedic Surgery of the Spine; Visit Provider Orthopaedic Surgery Orthopaedic Surgery of the Spine
PROC: (CPT 22551; principal; 2024-05-04 07:00)
DX: M50.122 Cervical disc disorder at C5-C6 level with radiculopathy (principal); I10 Essential (primary) hypertension; Z87.891 Personal history of nicotine dependence; M48.02 Spinal stenosis, cervical region; E78.5 Hyperlipidemia, unspecified; Z86.39 Personal history of other endocrine, nutritional and metabolic disease
CPT/HCPCS: 22551; 22845; 20931; 00600; 36415; 72040; 76000; 80048; 83735; 85025; 86703; 86706; 86708; 86803; 86850; 86900; 86901; 87081; 93005; C1713; J2405; J3475

== ENCOUNTER 2024-07-01 07:00 | Outpatient (RCR) | payer OTHER, SELFPAY ==
--- NOTE | 2024-05-31 07:56 | HP.PTEVAL_ITS ---
Patient's Visit Information Visit Information Visit Information: AH HUERTAS is a 48 year old M referred to Physical Therapy by CARLOS Velásquez with a diagnosis of ARTHODESIS STATUS. Date of Evaluation: 05/31/24 Physical Therapist: Chris Keith PT, Cert MDT, OCS Visit Plan Frequency: 2x /Week Duration: 4 Weeks Plan: S/P CERVICAL ANTERIOR FUSION C5-6 May PT INTERVENTIONS CERVICAL ROM, POSTURAL EX'S ,STRENGTHENING UE AND ACTIVITY MODIFICATION Subjective Subjective: This 48 y/o male presents to physical therapy with s/p cervical f usion on May 06 at [facility] at DR Treviño.Patient had s/p C5-6 anterior cervical discectomy fusion d/c DOS and weaned cervical collar. Patient has lifting restriction gallon milk. Patient had MRI prior to surgery showed Prominent left central C5-6 disc osteophyte complex causing significant narrowing of the left lateral recess and adjacent neural foramen.Seen PA recommended PT and had x-rays showed good.Patient stopped pain medication. Patient return to work with restriction. RTD jun 17. Denies paresthesia/tingling . Denies ANTONIO/nausea/tinnitus. Patient sleeping okay. Patient has no injury or trauma. Patient condition affects QOL and function. Patient goals to decrease pain. 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:(dynamometer) left 70 # ,right 85# MMT: grossly 5/5 AROM BUE: WFL CERVICAL ROM: flexion min loss ,lateral flexion/rotation /extension min/mod loss Special Tests C/S Radiculapathy - Left Upper limb tension test: Negative C/S Radiculapathy - Right Upper limb tension test: Negative Balance/Special Test Scores Oswestry Neck Score: 12 Goals Goal 1:: Patient to be I with HEP for NECK Goal Time Frame: 4-6 Weeks Goal 2:: Patient to demonstrate 75% improvement with improved function and job demands Goal Time Frame: 4-6 Weeks Goal 3:: Patient to improve neck oswestry score by 5 point to improve QOL and function/job demands . Goal Time Frame: 4-6 Weeks Goal 4:: Patient to improve cervical ROM for function of recovery for driving Goal Time Frame: 4-6 Weeks Goal 5:: Patient to return to work without limitations. Goal Time Frame: 4-6 Weeks Rehabilitation Potential Physical Therapy Diagnosis: This patient underwent s/p cervical fusion C5-6 with decrease ROM and decrease ability to return to work thus benefit from skilled PT Rehabilitation Potential: Good Anticipated Interventions Patient/Client Instruction: Educate patient on: Condition and Plan of Care For the Purpose of:: To decrease pain, To increase ROM, To improve muscle performance and motor function, To improve ability to perform ADL's, To increase tolerance to activity/condition/position, To improve ability of physical actions for home/community/work/leisure, To improve health of tissue, To decrease soft tissue restriction, To increase flexibility/ROM and To improve tolerance to ADL's Therapeutic Exercise to Include: Strength training, Postural training, Flexibilty training, Active ROM and Scapular Strength/Stabilization Comment: BUE For the Purpose of:: To decrease pain, To increase ROM, To improve muscle performance and motor function, To improve ability to perform ADL's, To increase tolerance to activity/condition/position, To improve ability of physical actions for home/community/work/leisure, To improve health of tissue, To decrease soft tissue restriction and To increase flexibility/ROM Text: Thank you for the opportunity to evaluate your patient. For Medicare and Medicare HMO plans, please review the plan of care and approve it. It will need to be FAXED BACK to us at [phone] for Medicare purposes. For Medicare only, by signing this I certify the plan of care. Please let me know if there are questions or concerns regarding this plan of care. Physician Signature: Date:
--- NOTE | 2024-07-01 07:26 | HP.PTDCSUM ---
Discharge Summary D/C summary: It has been my pleasure to treat HA HUERTAS referred by CARLOS Velásquez, with the diagnosis of ARTHODESIS STATUS for a total of 9 visit(s). Discharge Date: 07/01/24 Please see the following information for a summary of their discharge status. Subjective Subjective: RTW full duty 20-25# lifting and gradual running 3 miles .. 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 Goal Progress: Goal Met Goal 4:: Patient to improve cervical ROM for function of recovery for driving Goal Progress: Goal Met Goal 5:: Patient to return to work without limitations. Goal Progress: Goal Met Plan Plan: D/C D/C Information Discharge Comments: HEP d/c sentence: If there are questions or concerns regarding this patient's physical therapy, please feel free to call me at [phone]. Thank you for the referral of this patient. Sincerely, Chris eKith, PT, Cert MDT, OCS Balance/Gait/Functional tests Balance/Special Test Scores Oswestry Neck Score: 0
== END 2024-07-01 08:39 | disposition home or self-care (01) ==
LOC: PT 07:00
PROVIDERS: PCP Internal Medicine; Referring Provider Student in an Organized Health Care Education/Training Program; Visit Provider Student in an Organized Health Care Education/Training Program
DX: Z98.1 Arthrodesis status (principal)
CPT/HCPCS: 97110; 97162; 97530

== ENCOUNTER 2025-02-16 09:17 | Day surgery (SDC) | payer OTHER, SELFPAY ==
[2025-02-16] VITALS (8 sets, daily range): BP systolic 104–116; BP diastolic 65–81; PULSE 61–81; RESP 16; TEMP 36.1–36.6; O2SAT 97–100; BMI 24.5
[2025-02-16] MEDS: Lactated Ringers 1,000 ML 15 ML IV (09:47)
--- NOTE | 2025-02-16 09:50 | PCM.HP.STD ---
[facility] - General General Date of Admission: 02/16/25 Date of Service: 02/16/25 Chief Complaint: Screening colonoscopy HPI Narrative HA HUERTAS, is a 49 M who presents today for screening colonoscopy. He has not had a colonoscopy in the past. He has past medical history of hypertension which is controlled medications. He does not have any change in bowel habits at this time. He denies any lower GI bleeding constipation or diarrhea. [facility]LY [facility] Medical History Injury of head and neck Non-smoker Preventative health care Alcohol use Restless legs Bone spur Chewing tobacco use Leg cramps Hypertension Nocturia Hyperlipidemia history of finger surgery Raynauds disease History of hyperparathyroidism Kidney stone Low calcium levels Seasonal allergies Home Medications ?Medication ?Instructions ?Recorded ?Last Taken ?Type calcium carbonate (Calcium 600) 600 mg PO BID-TID 08/12/17 02/15/25 History multivitamin 1 cap PO QAM 08/12/17 02/15/25 History cholecalciferol (vitamin D3) 50 2,000 unit PO QDAY #90 caps 08/20/17 02/15/25 Rx mcg (2,000 unit) capsule glucosamine 750 ks-fkweemkloyu-vxz 1 tab PO DAILY 07/10/23 02/15/25 History no1 644 mg-C 30 mg-naila 1 mg tablet (Osteo Bi-Flex Triple Strength) calcitriol 0.25 mcg capsule 0.5 mcg (2 x 0.25 mcg) PO DAILY 08/08/24 02/15/25 Rx #180 caps hydrochlorothiazide 25 mg tablet 25 mg PO DAILY #90 tabs 08/08/24 02/15/25 Rx losartan 50 mg tablet 50 mg PO DAILY #90 tabs 12/12/24 02/15/25 Rx Allergy/AdvReac Type Severity Reaction Status Date / Time No Known Allergies Allergy Verified 02/13/25 13:40 Family History Mother Raynaud disease Breast cancer Grandmother Raynaud disease Brother Raynaud disease Father Hypertension Cancer prostate Surgical History History of parathyroid surgery History of hand surgery History of knee surgery Social History Smoking Status: Former smoker alcohol intake: current alcohol intake frequency: a few times a month Alcohol type: beer and wine substance use type: does not use what type of physical activity do you participate in: running frequency: 3-4 times per week ROS Constitutional Constitutional: Denies fatigue, fever(s), poor appetite, weight gain or weight loss Gastrointestinal Gastrointestinal: Denies belching, bloating, change in bowel habits, change in stool character, chewing difficulty, coffee ground emesis, constipation, cramping, diarrhea, dyspepsia, dysphagia, early satiety, excessive flatus, fecal incontinence, heartburn, hematemesis, hematochezia, hemorrhoids, loose stools, melena, nausea, odynophagia, rectal bleeding, tenesmus, vomiting or weight changes Vital Signs Vital Signs Vital Signs: 02/16/25 09:40 02/16/25 09:40 Temperature 97.8 F Temperature Source Temporal Pulse Rate 74 Respiratory Rate 16 Respiratory Pattern Normal Blood Pressure 116/81 H Blood Pressure Mean 92 Blood Pressure Source Monitor Pulse Ox 100 Oxygen Delivery Method Room Air Weight Weight: 176 lb 5.917 oz Body Mass Index (BMI) 24.5 Physical Exam Const alert, oriented x3, no apparent distress and healthy appearing General Appearance: cooperative GI normal to inspection, nondistended, normoactive bowel sounds, soft to palpation, non-tender and non-distended Percussion: normal to percussion Rectal Exam: deferred Assessment & Plan Assessment/Plan (1) Colon cancer screening: PLAN: Assessment and Plan Assessment and Plan (1) GERD (gastroesophageal reflux disease): Status: Chronic Qualifiers: Esophagitis presence: without esophagitis Qualified Code(s): K21.9 - Gastro-esophageal reflux disease without esophagitis Plan: Trial is a 74-year-old male patient here today for follow-up regarding his Mccracken's esophagus. Patient underwent EGD in December 2019 for which showed long segment Mccracken's. Recommendation was for repeat EGD in 1 year. Patient is doing well today and denies any GI complaints. He continues with omeprazole daily. Patient's last colonoscopy was 4 to 5 years ago. He does have intermittent diarrhea. I explained that we stop screening colonoscopies at the age 73. Patient would like to have 1 more colonoscopy. - EGD and colonoscopy - Continue omeprazole - Follow-up after procedures (2) Barretts esophagus: Status: Chronic Qualifiers: Mccracken's esophagus type: without dysplasia Qualified Code(s): K22.70 - Mccracken's esophagus without dysplasia
--- NOTE | 2025-02-16 10:08 | PRE.ANES_ITS ---
ASA Classification* ASA Classification ASA Classification: 2 Assessment & Plan Anesthesia* Anesthesia Assessment Anesthesia Assessment: Discussed sedation and/or anesthesia options, risks, benefits, and alternatives with patient/parents/legal guardian/POA. Questions invited. The patient/parents/legal guardian/POA seems to understand and agrees to proceed with anesthesia plan. Reviewed the physical assessment, medical history, allergy history and patient home medications list prior to surgery/procedure/anesthetic and documented any changes. Performed airway and anesthesia risk assessments. Anesthesia Type Anesthesia Type: MAC History Source History Obtained from:: Patient and Chart Anesthesia Focused Assessment* Temperature: 97.8 F Pulse Rate: 74 Blood Pressure: 116/81 Respiratory Rate: 16 Pulse Ox: 100 Oxygen Delivery Method: Room Air Airway Assessment Mouth opens: >3 cm Mallampati Score: IV Teeth Condition: Intact Neck Range of motion (ROM): Limited ROM (Slight Decrease) Labs Anesthesia Preop lab: CBC WBC, (4.4-11.0) 9.4 K/mm3 04/20/24, 07:44 RBC, (4.6-6.2) 4.97 M/mm3 04/20/24, 07:44 Hgb, (13.0-16.5) 15.2 g/dL 04/20/24, 07:44 Hct, (40-54) 43.9 % 04/20/24, 07:44 Plt Count, (150-450) 355 K/mm3 04/20/24, 07:44 CHEMISTRY Potassium, (3.5-5.1) 3.4 mmol/L L 04/20/24, 07:44 Sodium, (136-145) 137 mmol/L 04/20/24, 07:44 Magnesium, (1.6-2.6) 2.0 mg/dL 04/20/24, 07:42 BUN, (7-18) 17 mg/dL 04/20/24, 07:44 Creatinine, (0.70-1.30) 1.20 mg/dL 04/20/24, 07:44 Glucose, (74-106) 94 mg/dL 04/20/24, 07:44 TSH, (0.358-3.74) 2.03 uIU/mL 08/12/21, 08:30 COAG Pre-Assessment Diagnosis/Proposed Procedure Planned Operative Procedure(s): COLONOSCOPY Anesthesia History 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 When Was Last Pacemaker Check QUESTION #4 FULL TEXT: You/Your Family Experience fever (hyperthermia) with Anesthesia Last Oral Intake Last Oral intake: Last Oral Intake NPO since 20:00 02/16/25 09:40 Meds taken in AM with sips of No 02/16/25 09:40 water? Meds patient instructed to take am of surgery Any additional information?: Yes NPO since: 06:30 (Patient finished preop prep at 6:30 AM.) PONV PONV - freezer tunnel operator: PONV - freezer tunnel operator Female No 02/13/25 13:42 HX of Motion Sickness No 02/13/25 13:42 HX of N/V After Surgery No 02/13/25 13:42 Non-Smoker No 02/13/25 13:42 Duration of Surgery greater No 02/13/25 13:42 than 60 minutes Number of Risk Factors PONV Score Height & Weight Height & Weight: Anesthesia: Height & Weight Height 5 ft 11 in 02/16/25 09:40 Weight: 80 kg 02/16/25 09:40 Body Mass Index (BMI) 24.5 02/16/25 09:40 Respiratory Assessment Respiratory Assessment - freezer tunnel operator: Respiratory Tract Infection Hx - freezer tunnel operator Hx Respiratory Tract Infection No 02/13/25 13:42 STOP Sleep Apnea STOP Sleep Apnea - freezer tunnel operator: STOP Sleep Apnea - freezer tunnel operator Hx Hypertension Yes 02/13/25 13:42 Hx Sleep Apnea No 02/13/25 13:42 CPAP BIPAP Do you snore loudly (louder No 02/13/25 13:42 than talking or can be heard Do you often feel tired/ No 02/13/25 13:42 fatigued/ sleepy during daytime? Has anyone observed you stop No 02/13/25 13:42 breathing during sleep? STOP Results Negative 02/13/25 13:42 QUESTION #5 FULL TEXT : Do you snore loudly (louder than talking or can be heard through closed doors)? 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: Tobacco Use History - freezer tunnel operator Tobacco Use Smoking Status Former smoker 02/13/25 13:42 Hx Tobacco Use No 02/13/25 13:42 Years Smoking Packs Smoked per Day Smoking Cessation Date was No - quit smoking greater 02/13/25 13:42 within the last 15 years than 15 years ago Hx Smoking Cessation Date Hx Smoking Cessation No 02/13/25 13:42 Counseling Hematologic Medial History Hematologic Hx - freezer tunnel operator: Hematologic Medical Hx - credit representative Hx of Blood Transfusion No 02/13/25 13:42 Hx of Transfusion in last 3 No 02/13/25 13:42 Months Date of Last Transfusion (if within last 3 months) Ever experience any problems No 02/13/25 13:42 with transfusion(s)? Specify any problems Hx of Preganancy in last 3 N/A 02/13/25 13:42 Months Nurse Filling Out Transfusion EHSAUTEE NACOOCHEE 02/13/25 13:42 & Questions: Date: 02/13/25 02/13/25 13:42 Time: 13:46 02/13/25 13:42 Patient unable to answer at this time (ie. confused, unrespo /Reproduction History /Reproductive History - freezer tunnel operator: /Reproductive Hx- freezer tunnel operator Hx Now No 02/13/25 13:42 Gestational Age (in weeks): EDC: Hx Hx Para Hx Section SAB No 02/13/25 13:42 Active Medications Active Medications: Current Medications Generic Name Dose Route Start Last Admin Trade Name Freq PRN Reason Stop Dose Admin Lactated Ringer's 1,000 mls @ 15 mls/hr 02/16/25 09:30 02/16/25 09:47 IV 15 mls/hr .Q48H LAEXA Administration PFSH Medical History Injury of head and neck Non-smoker Preventative health care Alcohol use Restless legs Bone spur Chewing tobacco use Leg cramps Hypertension Nocturia Hyperlipidemia history of finger surgery Raynauds disease History of hyperparathyroidism Kidney stone Low calcium levels Seasonal allergies Home Medications ?Medication ?Instructions ?Recorded ?Last Taken ?Type calcium carbonate (Calcium 600) 600 mg PO BID-TID 07/3002/15/25 History multivitamin 1 cap PO QAM 08/12/17 History cholecalciferol (vitamin D3) 50 2,000 unit PO QDAY #90 caps 08/20/17 02/15/25 Rx mcg (2,000 unit) capsule glucosamine 750 bq-psaiiyueqwy-qoc 1 tab PO DAILY 02/2202/15/25 History no1 644 mg-C 30 mg-naila 1 mg tablet (Osteo Bi-Flex Triple Strength) calcitriol 0.25 mcg capsule 0.5 mcg (2 x 0.25 mcg) PO DAILY 08/08/24 02/15/25 Rx #180 caps hydrochlorothiazide 25 mg tablet 25 mg PO DAILY #90 ta bs 08/08/24 02/15/25 Rx losartan 50 mg tablet 50 mg PO DAILY #90 tabs 11/2902/15/25 Rx Allergy/AdvReac Type Severity Reaction Status Date / Time No Known Allergies Allergy Verified 02/13/25 13:40 Family History Mother Raynaud disease Breast cancer Grandmother Raynaud disease Brother Raynaud disease Father Hypertension Cancer prostate Surgical History History of parathyroid surgery History of hand surgery History of knee surgery Social History Smoking Status: Former smoker alcohol intake: current alcohol intake frequency: a few times a month Alcohol type: beer and wine substance use type: does not use what type of physical activity do you participate in: running frequency: 3-4 times per week Review of Systems (Anesthesia) ROS Narrative System reviewed and no additional complaints, except as documented.
--- NOTE | 2025-02-16 10:46 | OP.COLON_ITS ---
Patient Name: Darnell Fraire Procedure Date: 02/16/2025 10:17 AM Date of : 1975 Age: 49 Procedure: Colonoscopy Indications: Screening for colorectal malignant neoplasm Providers: Trae Cannon DO Referring MD: Melvi Batres MD Medicines: Monitored Anesthesia Care Patient Profile: This is a 49 year old male. Refer to note in patient chart for documentation of history and physical. Last Colonoscopy: none. The patient's first colonoscopy is today. Complications: No immediate complications. Procedure: Pre-Anesthesia Assessment: - Prior to the procedure, a History and Physical was performed, and patient medications and allergies were reviewed. The patient is competent. The risks and benefits of the procedure and the sedation options and risks were discussed with the patient. All questions were answered and informed consent was obtained. Patient identification and proposed procedure were verified in the pre-procedure area. Mental Status Examination: alert and oriented. Airway Examination: normal oropharyngeal airway and neck mobility. Respiratory Examination: clear to auscultation. CV Examination: normal. Prophylactic Antibiotics: The patient does not require prophylactic antibiotics. Prior Anticoagulants: The patient has taken no anticoagulant or antiplatelet agents except for NSAID medication. ASA Grade Assessment: II - A patient with mild systemic disease. After reviewing the risks and benefits, the patient was deemed in satisfactory condition to undergo the procedure. The anesthesia plan was to use monitored anesthesia care (MAC). Immediately prior to administration of medications, the patient was re-assessed for adequacy to receive sedatives. The heart rate, respiratory rate, oxygen saturations, blood pressure, adequacy of pulmonary ventilation, and response to care were monitored throughout the procedure. The physical status of the patient was re-assessed after the procedure. After I obtained informed consent, the scope was passed under direct vision. Throughout the procedure, the patient's blood pressure, pulse, and oxygen saturations were monitored continuously. The pediatric colonoscope was introduced through the anus and advanced to the cecum, identified by appendiceal orifice and ileocecal valve. The colonoscopy was performed without difficulty. The patient tolerated the procedure well. The quality of the bowel preparation was adequate. The ileocecal valve, appendiceal orifice, and rectum were photographed. Scope In: 10:30:13 AM Scope Withdrawal Time 0 hours 8 minutes 0 seconds Scope Out: 10:41:29 AM Total Procedure Duration Time 0 hours 11 minutes 16 seconds Findings: The perianal and digital rectal examinations were normal. A few small-mouthed diverticula were found in the sigmoid colon, transverse colon and ascending colon. The exam was otherwise without abnormality on direct and retroflexion views. Impression: - Diverticulosis in the sigmoid colon, in the transverse colon and in the ascending colon. - The examination was otherwise normal on direct and retroflexion views. - No specimens collected. Recommendation: - Discharge patient to home. - Resume previous diet. - Continue present medications. - Repeat colonoscopy in 10 years for screening purposes. Procedure Code(s): --- Professional --- G0121, Colorectal cancer screening; colonoscopy on individual not meeting criteria for high risk CPT copyright 2021 [employer]. All rights reserved. The codes documented in this report are preliminary and upon gristmiller review may be revised to meet current compliance requirements. Trae Cannon DO 02/16/2025 10:45:55 AM This report has been signed electronically. Number of Addenda: 0 Note Initiated On: 02/16/2025 10:17 AM
--- NOTE | 2025-02-16 10:46 | OP.PROVAT_ITS ---
02/16/2025 Melvi Batres MD [address] [place] [address] [place] [address] Re : Colonoscopy procedure for Darnell Fraire Dear Dr. Batres This procedure was performed on January. My impressions and recommendations are as follows: Impressions : - Diverticulosis in the sigmoid colon, in the transverse colon and in the ascending colon. - The examination was otherwise normal on direct and retroflexion views. - No specimens collected. Recommendations : - Discharge patient to home. - Resume previous diet. - Continue present medications. - Repeat colonoscopy in 10 years for screening purposes. My findings are described in the full procedure note, which is enclosed. If I can be of further assistance, please feel free to contact me at . Sincerely, Trae Cannon, 02/16/2025 10:45:55 AM This report has been signed electronically.
--- NOTE | 2025-02-16 10:50 | PCM.POST.ANE ---
Anesthesia: Postop Eval I Current Vital Signs Temperature: 97.1 F Pulse Rate: 81 Blood Pressure: 107/72 Respiratory Rate: 16 Pulse Ox: 97 Oxygen Delivery Method: Room Air Assessment Airway patent: Yes Spontaneous unlabored respirations: Yes Mental status: Awake and Calm nausea: No Vomiting: No Anesthesia Complication: No Fluid Hydration Crystalloid volume administer (ml): 200 Total IV fluid infused: 200 Progress Note Anesthesia document: Postop Eval 1 completed: Yes
--- NOTE | 2025-02-16 12:54 | POSTOPAN2_ITS ---
Anesthesia Postop Eval I Sum Postop Eval Completion status Anesthesia document: Postop Eval 1 completed: Yes Anesthesia Postop Eval I Summary Anesthesia Postop Eval I Summary: Anesthesia Postop Eval I: Assessment Summary Airway patent Yes 02/16/25 10:51 RESIDENT SERVICES SUPERVISOR.[email or web address] Spontaneous unlabored Yes 02/16/25 10:51 RESIDENT SERVICES SUPERVISOR.GDOTT respirations Mental status Awake,Calm 02/16/25 10:51 RESIDENT SERVICES SUPERVISOR.GDOTT nausea No 02/16/25 10:51 RESIDENT SERVICES SUPERVISOR.GDOTT Vomiting No 02/16/25 10:51 RESIDENT SERVICES SUPERVISOR.GDOTT Anesthesia Postop Eval I: Fluid Summary Crystalloid volume administer 200 02/16/25 10:51 RESIDENT SERVICES SUPERVISOR.GDOTT (ml) Colloids volume administered ( ml) Blood Product volume administered (ml) Total IV fluid infused 200 02/16/25 10:51 RESIDENT SERVICES SUPERVISOR.GDOTT Anesthesia Postop Eval I: Summary Notes Anesthesia Complication No 02/16/25 10:51 RESIDENT SERVICES SUPERVISOR.GDOTT Anesthesia Complication Comment: Post-operative progress note Anesthesia: Postop Eval II Evaluation Mental status: Awake and Calm Pain Level: 0 nausea: No Vomiting: No Complications Anesthesia Complication: No
--- NOTE | 2025-02-16 12:54 | PCM.POSTANE2 ---
Anesthesia Postop Eval I Sum Postop Eval Completion status Anesthesia document: Postop Eval 1 completed: Yes Anesthesia Postop Eval I Summary Anesthesia Postop Eval I Summary: Anesthesia Postop Eval I: Assessment Summary Airway patent Yes 02/16/25 10:51 TAPER OPERATOR.[email or web address] Spontaneous unlabored Yes 02/16/25 10:51 TAPER OPERATOR.GDOTT respirations Mental status Awake,Calm 02/16/25 10:51 TAPER OPERATOR.GDOTT nausea No 02/16/25 10:51 TAPER OPERATOR.GDOTT Vomiting No 02/16/25 10:51 TAPER OPERATOR.GDOTT Anesthesia Postop Eval I: Fluid Summary Crystalloid volume administer 200 02/16/25 10:51 TAPER OPERATOR.GDOTT (ml) Colloids volume administered ( ml) Blood Product volume administered (ml) Total IV fluid infused 200 02/16/25 10:51 TAPER OPERATOR.GDOTT Anesthesia Postop Eval I: Summary Notes Anesthesia Complication No 02/16/25 10:51 TAPER OPERATOR.GDOTT Anesthesia Complication Comment: Post-operative progress note Anesthesia: Postop Eval II Evaluation Mental status: Awake and Calm Pain Level: 0 nausea: No Vomiting: No Complications Anesthesia Complication: No
== END 2025-02-16 11:13 | disposition home or self-care (01) ==
LOC: EN 09:19 → AC 09:20
PROVIDERS: PCP Internal Medicine; Referring Provider Internal Medicine; Visit Provider Internal Medicine Gastroenterology
PROC: 0DJD8ZZ Inspection of Lower Intestinal Tract, Via Natural or Artificial Opening Endoscopic (ICD-10-PCS; CPT 45378; principal; 2025-02-16 10:25)
DX: Z12.11 Encounter for screening for malignant neoplasm of colon (principal); K21.9 Gastro-esophageal reflux disease without esophagitis; E78.5 Hyperlipidemia, unspecified; I10 Essential (primary) hypertension; K57.30 Diverticulosis of large intestine without perforation or abscess without bleeding; Z87.891 Personal history of nicotine dependence; K22.70 Barrett's esophagus without dysplasia; Z79.899 Other long term (current) drug therapy
CPT/HCPCS: 45378; J2405